=== PATIENT | female | born 1970 | race Caucasian/White ===

== ENCOUNTER 2016-10-22 18:30 | Emergency (ER) | payer OTHER ==
[2016-10-22 19:06] LABS: BASOPHIL % 0.2 % (0.0-0.4); Eosinophil % 0.5 % (0.00-5.0); Lymphocytes % 10.4 % (24.0-44.0); Mean Cell Volume 86.6 fl (78-100); Mean Platelet Volume 11.5 fl (6-9.5); Monocytes % 4.9 % (0.0-12.0); Platelet Count 171 K/mm3 (150-450); Red Blood Count 4.03 M/mm3 (4.1-5.4); Red Cell Distribution Width 15.3 % (11.5-14.0); White Blood Count 9.9 K/mm3 (4.0-10.5)
[2016-10-22 19:09] LABS: Mean Corpuscular Hemoglobin 26.7 pg (26-32)
[2016-10-22 19:22] LABS: Collection Type CLEAN CATCH
[2016-10-22 19:23] LABS: ADD URINE CULTURE? NO (NO); COMPLETE URINE MICROSCOPIC? YES; Epithelial Cells FEW /HPF (FEW); Ph 5.5 (5-6)
[2016-10-22 19:25] LABS: ALBUMIN 3.2 g/dL (3.4-5.0); ANION GAP 15.5 MEQ/L (5-15); BILIRUBIN,TOTAL 0.3 mg/dL (0.2-1.0); Carbon Dioxide 21.1 mEq/L (21-32); Potassium 3.5 mEq/L (3.5-5.1); Total Protein 7.1 gm/dL (6.4-8.2)
[2016-10-22] MEDS ORDERED: Sodium Chloride 0.9% 1000 ML 1,000 ML IV STA (19:28)
[2016-10-22] MEDS ORDERED: Sodium Chloride 0.9% 1000 ML 1,000 ML ONE (19:33)
[2016-10-22 19:45] VITALS: BP 131/73
--- NOTE | 2016-10-22 20:18 | ERPHSYRPT ---
- History of Present Illness Time Seen by Provider: 10/22/16 19:22 Source: patient, family Patient Subjective Stated Complaint: pt states she began running a fever and having bilateral year pain and sorethroat. pt denies any cough. c/o generalized bodyaches. Triage Nursing Assessment: pt flushed, hot to touch, dry. pt alert and oriented x3. ambulated with riojas into ER. Physician History: CC: fever Hx: 46 y/o patient sick today. Fever today. Chills. She has burning eyes, sore throat, mild cough, increased urinary frequency. She has DM. No vomiting or diarrhea. Has not checked glc. Took APAP at 5PM. She is a patient of Dr Saunders. ALL: Zpack, shellfish, codiene, roaches Social: Smoker Timing/Duration: today Fever Severity: moderate Fever Therapy MANAGER MASS: Acetaminophen Allergies/Adverse Reactions: azithromycin [From Zithromax Z-Pedro] Allergy (Verified 10/22/16 18:45) codeine Allergy (Verified 10/22/16 18:45) shellfish derived Allergy (Verified 10/22/16 18:45) Home Medications: Albuterol 8 gm Mdi Hfa [Ventolin Hfa MDI] 2 puff IH .PRN 01/21/16 [History ] Loratadine 10 mg [Claritin 10 mg] 10 mg PO DAILY 01/21/16 [History] PANTOPRAZOLE 40 mg Tablet [Protonix 40MG Tablet] 40 mg PO DAILY 01/21/16 [ History] Pregabalin [Lyrica] 75 mg PO TID 01/21/16 [History] Rizatriptan Benzoate [Rizatriptan] 10 mg PO .PRN 01/21/16 [History] Tizanidine HCl 4 mg [Zanaflex 4 MG] 2 mg PO HS 01/21/16 [History] Topiramate [Topamax] 50 mg PO BID 01/21/16 [History] Pioglitazone HCl [Actos] 0 mg PO UD 10/22/16 [History] Hx Tetanus, Diphtheria Vaccination/Date Given: Yes (unknown) Hx Influenza Vaccination/Date Given: No Hx Pneumococcal Vaccination/Date Given: No Immunizations Up to Date: Yes - Review of Systems Constitutional: Fever, Chills, Malaise Eyes: Other (burning eyes) Ears, Nose, & Throat: Throat Pain Respiratory: Cough Abdominal/Gastrointestinal: No Abdominal Pain, No Nausea, No Vomiting, No Diarrhea Genitourinary Symptoms: Frequency, No Dysuria Musculoskeletal: No Back Pain Skin: No Rash Neurological: No Focal Weakness, No Headache, No Parasthesia All Other Systems: Reviewed and Negative - Past Medical History Pertinent Past Medical History: Yes Neurological History: Migraines Musculoskeletal History: Fibromyalgia, Osteoarthritis Other Medical History: neuropatthy. chronic pain - Past Surgical History Past Surgical History: Yes Gastrointestinal: Cholecystectomy Musculoskeletal: Orthopedic Surgery Female Surgical History: Section Other Surgical History: back - Social History Smoking Status: Current every day smoker How long have you smoked: 35 Exposure to second hand smoke: Yes Drug Use: none Patient Lives Alone: No - Female History Hx Last Menstrual Period: end september 2016 - Nursing Vital Signs Nursing Vital Signs: Initial Vital Signs Temperature 102.5 F Temperature Source Oral Pulse Rate 90 Respiratory Rate 14 Blood Pressure [] 131/73 Pain Intensity 8 - Physical Exam General Appearance: alert Eye Exam: PERRL/EOMI ENT Exam: pharyngeal erythema, tonsillar exudate Neck Exam: normal inspection, non-tender, supple Respiratory Exam: normal breath sounds, lungs clear Cardiovascular/Chest Exam: normal heart sounds, regular rate/rhythm Gastrointestinal/Abdominal Exam: soft, no distention Extremity Exam: non-tender, normal range of motion Neurologic Exam: alert, oriented x 3, cooperative, sensation nml, No motor deficits Skin Exam: warm, dry, No rash SpO2 Interpretation: normal SpO2: 99 Oxygen Delivery: Room Air - Course Nursing assessment & vital signs reviewed: Yes EKG Interpreted by Me: RATE (91), Sinus Rhythm, NORMAL AXIS, NORMAL INTERVALS ( QTc 426), Non-specific ST Changes (poor r wave progression) - Radiology Exams cxr X-ray Interpretation: Reviewed by me (CM, no pneumonia but some increased right basilar markings) Ordered Tests: Active Orders 24 hr Category Date Time Status EKG-ER Only STAT Care 10/22/16 18:45 Active IV Insertion STAT Care 10/22/16 18:52 Active CHEST 1 VIEW (PORTABLE) Stat Exams 10/22/16 18:54 Taken BLOOD CULTURE Stat Lab 10/22/16 18:55 Received CBC W DIFF Stat Lab 10/22/16 18:55 Completed CMP Stat Lab 10/22/16 18:55 Completed CULTURE, THROAT Stat Lab 10/22/16 19:00 Received Lactic Acid Stat Lab 10/22/16 18:52 Completed STREP SCREEN-BETA A Stat Lab 10/22/16 19:00 Completed UA W/ MICROSCOPIC Stat Lab 10/22/16 18:50 Completed Medication Summary Discontinued Medications Generic Name Dose Route Start Last Admin Trade Name Jeffery PRN Reason Stop Dose Admin Sodium Chloride 1,000 mls @ 999 mls/hr 10/22/16 19:28 10/22/16 19:38 Sodium Chloride 0.9% 1000 Ml IV 10/22/16 20:28 999 mls/hr .Q1H1M STA Administration Sodium Chloride Confirm 10/22/16 19:33 Sodium Chloride 0.9% 1000 Ml Administered 10/22/16 19:34 Dose 1,000 mls @ ud .ROUTE .STK-MED ONE Lab/Rad Data: Laboratory Result Diagrams 10/22/16 18:55 10/22/16 18:55 Laboratory Results 10/22/16 10/22/16 10/22/16 Range/Units 19:30 19:00 18:55 WBC (4.0-10.5) K/mm3 RBC (4.1-5.4) M/mm3 Hgb (12.0-16.0) gm/dl Hct (35-47) % MCV (78-100) fl MCH (26-32) pg MCHC (32-36) g/dl RDW (11.5-14.0) % Plt Count (150-450) K/mm3 MPV (6-9.5) fl Gran % (36.0-66.0) % Lymphocytes % (24.0-44.0) % Monocytes % (0.0-12.0) % Eosinophils % (0.00-5.0) % Basophils % (0.0-0.4) % Basophils # (0-0.4) Sodium 139 (136-145) mEq/L Potassium 3.5 (3.5-5.1) mEq/L Chloride 106 (98-107) mEq/L Carbon Dioxide 21.1 (21-32) mEq/L Anion Gap 15.5 H (5-15) MEQ/L BUN 8 L (9-20) mg/dL Creatinine 1.12 (0.55-1.30) mg/dl Estimated GFR 55 ML/MIN Glucose 117 H (70-110) MG/DL Lactic Acid (0.4-2.0) Calcium 8.7 (8.5-10.1) mg/dL Total Bilirubin 0.3 (0.2-1.0) mg/dL AST 29 (15-37) U/L ALT 44 (12-78) U/L Alkaline Phosphatase 74 (46-116) U/L Serum Total Protein 7.1 (6.4-8.2) gm/dL Albumin 3.2 L (3.4-5.0) g/dL Ur Collection Type Urine Color (YELLOW) Urine Appearance (CLEAR) Urine pH (5-6) Ur Specific [place] (1.005-1.025) Urine Protein (Negative) Urine Glucose (UA) (NEGATIVE) mg/dL Urine Ketones (NEGATIVE) Urine Nitrite (NEGATIVE) Urine Bilirubin (NEGATIVE) Urine Urobilinogen (0-1) mg/dL Urine WBC (Auto) (NEGATIVE) Urine RBC (Auto) (0-5) Jad/ul Urine Microscopic RBC (0-2) /HPF Ur Epithelial Cells (FEW) /HPF Influenza Type A Ag NEGATIVE (NEGATIVE) Influenza Type B Ag NEGATIVE (NEGATIVE) RSV (PCR) NEGATIVE (Negative) Streptococcus Screen NEGATIVE (Negative) Specimen Received 10/22/16 10/22/16 10/22/16 Range/Units 18:55 18:52 18:50 WBC 9.9 (4.0-10.5) K/mm3 RBC 4.03 L (4.1-5.4) M/mm3 Hgb 10.8 L (12.0-16.0) gm/dl Hct 34.9 L (35-47) % MCV 86.6 (78-100) fl MCH 26.7 (26-32) pg MCHC 30.9 L (32-36) g/dl RDW 15.3 H (11.5-14.0) % Plt Count 171 (150-450) K/mm3 MPV 11.5 H (6-9.5) fl Gran % 84.0 H (36.0-66.0) % Lymphocytes % 10.4 L (24.0-44.0) % Monocytes % 4.9 (0.0-12.0) % Eosinophils % 0.5 (0.00-5.0) % Basophils % 0.2 (0.0-0.4) % Basophils # 0.02 (0-0.4) Sodium (136-145) mEq/L Potassium (3.5-5.1) mEq/L Chloride (98-107) mEq/L Carbon Dioxide (21-32) mEq/L Anion Gap (5-15) MEQ/L BUN (9-20) mg/dL Creatinine (0.55-1.30) mg/dl Estimated GFR ML/MIN Glucose (70-110) MG/DL Lactic Acid 1.4 (0.4-2.0) Calcium (8.5-10.1) mg/dL Total Bilirubin (0.2-1.0) mg/dL AST (15-37) U/L ALT (12-78) U/L Alkaline Phosphatase (46-116) U/L Serum Total Protein (6.4-8.2) gm/dL Albumin (3.4-5.0) g/dL Ur Collection Type CLEAN CATCH Urine Color YELLOW (YELLOW) Urine Appearance CLEAR (CLEAR) Urine pH 5.5 (5-6) Ur Specific [place] <=1.005 (1.005-1.025) Urine Protein NEGATIVE (Negative) Urine Glucose (UA) NEGATIVE (NEGATIVE) mg/dL Urine Ketones NEGATIVE (NEGATIVE) Urine Nitrite NEGATIVE (NEGATIVE) Urine Bilirubin NEGATIVE (NEGATIVE) Urine Urobilinogen 0.2 (0-1) mg/dL Urine WBC (Auto) NEGATIVE (NEGATIVE) Urine RBC (Auto) MODERATE (0-5) Jad/ul Urine Microscopic RBC 2-5 (0-2) /HPF Ur Epithelial Cells FEW (FEW) /HPF Influenza Type A Ag (NEGATIVE) Influenza Type B Ag (NEGATIVE) RSV (PCR) (Negative) Streptococcus Screen (Negative) Specimen Received 10/21/16:1900 - Progress Progress Note: 10/22/16 20:56 She feels malaise and chills. She has fever. Likely viral syndrome. Advised she had heart and blood count checked for follow up. Advised symptom Rx. She wants to take empiric amoxil as she has exudate on tonsils. Throat culture pending. Can not rule out rll inf. Will release with instr. Counseled pt/family regarding: lab results, diagnosis, need for follow-up, rad results - Departure Time of Disposition: 20:57 Departure Disposition: Home Clinical Impression: Fever, Influenza-like syndrome Condition: Fair Critical Care Time: No Referrals: NICOLE SAUNDERS DO [Primary Care Provider] - Instructions: Fever (Symptom) -- Adult, Viral Syndrome, Pharyngitis/ Tonsillopharyngitis -- Adult Additional Instructions: Rx amoxil. Tylenol 650mg every 4-6 hours for fever/discomfort. Plenty of oral fluids. Follow up with Dr Saunders Wednesday if not better. Return for problems or concerns. Prescriptions: Amoxicillin [Amoxil] 1 cap PO TID #29 capsule
[2016-10-22] MEDS ORDERED: TYLENOL 325 MG PO ONE (20:56)
[2016-10-22] MEDS ORDERED: AMOXIL 500 MG PO ONE (20:56)
[2016-10-22 20:59] VITALS: O2SAT 99
[2016-10-22] MEDS ORDERED: TYLENOL 325 MG ONE (21:00)
[2016-10-22] MEDS ORDERED: AMOXIL 500 MG ONE (21:01)
[2016-10-22 21:10] VITALS: PULSE 80
--- NOTE | 2016-10-23 08:45 | XRAY ---
Indication: Fever and cough. Comparison: None Portable chest negative for focal infiltrate, consolidation, or large effusion. Heart and mediastinal structures within normal limits for AP portable technique. Bony thorax intact with previous lower cervical fusion surgery and incidental C7 cervical ribs. Impression: Nonacute chest with chronic features.
== END 2016-10-22 21:42 | disposition home or self-care (01) ==
LOC: ED 18:30
DX: R50.9 Fever, unspecified (principal); R53.81 Other malaise; R07.0 Pain in throat; R05 Cough
CPT/HCPCS: 36000; 36415; 71010; 80053; 81000; 83605; 85025; 87040; 87070; 87430; 87631; 93005; 96360; 99284; A9270-GY

== ENCOUNTER 2017-09-06 16:28 | Emergency (ER) | payer OTHER ==
[2017-09-06] MEDS ORDERED: TORAdol 30 mg Injection IM ONE (17:42)
--- NOTE | 2017-09-06 17:52 | ERPHSYRPT ---
- History of Present Illness Time Seen by Provider: 09/06/17 17:36 Source: patient Patient Subjective Stated Complaint: pt co migraine for 36 hours now, has tried her rx drugs with no relief Triage Nursing Assessment: pt aslo co right face swelling today.alert, walked in , resp easy Physician History: CC: headache Hx: 47 y/o patient of Dr Adrian Joe with hx of migraine headaches. She has had for the past 1 1/2 days. She took topamax and maxalt without relief. She has frequent similar headaches. No fever or chills. No neck pain. She had some right face swelling over parotid while eating lunch but it went down with a heating pad. No N/T/W. Severity of Pain-Max: severe Severity of Pain-Current: severe Recent Head Trauma: no recent headache/trauma Allergies/Adverse Reactions: azithromycin [From Zithromax Z-Pedro] Allergy (Verified 09/06/17 16:45) codeine Allergy (Verified 09/06/17 16:45) shellfish derived Allergy (Verified 09/06/17 16:45) Home Medications: Albuterol 8 gm Mdi Hfa [Ventolin Hfa MDI] 2 puff IH .PRN 01/21/16 [History ] Loratadine 10 mg [Claritin 10 mg] 10 mg PO DAILY 01/21/16 [History] PANTOPRAZOLE 40 mg Tablet [Protonix 40MG Tablet] 40 mg PO DAILY 01/21/16 [ History] Pregabalin [Lyrica] 75 mg PO TID 01/21/16 [History] Rizatriptan Benzoate [Rizatriptan] 10 mg PO .PRN 01/21/16 [History] Tizanidine HCl 4 mg [Zanaflex 4 MG] 2 mg PO HS 01/21/16 [History] Topiramate [Topamax] 50 mg PO BID 01/21/16 [History] Pioglitazone HCl [Actos] 0 mg PO UD 10/22/16 [History] Hx Tetanus, Diphtheria Vaccination/Date Given: Yes (unknown) Hx Influenza Vaccination/Date Given: No Hx Pneumococcal Vaccination/Date Given: No Immunizations Up to Date: Yes - Review of Systems Constitutional: No Fever, No Chills Eyes: Photophobia Ears, Nose, & Throat: No Symptoms Respiratory: No Cough Cardiac: No Chest Pain Abdominal/Gastrointestinal: No Abdominal Pain, No Nausea, No Vomiting Skin: No Rash Neurological: Headache All Other Systems: Reviewed and Negative - Past Medical History Pertinent Past Medical History: Yes Neurological History: Migraines Musculoskeletal History: Fibromyalgia, Osteoarthritis Other Medical History: neuropatthy. chronic pain - Past Surgical History Past Surgical History: Yes Gastrointestinal: Cholecystectomy Musculoskeletal: Orthopedic Surgery Female Surgical History: Section Other Surgical History: neck,arm surg - Social History Smoking Status: Current every day smoker How long have you smoked: 35 Exposure to second hand smoke: Yes Drug Use: none Patient Lives Alone: No (drove self here) - Female History Hx Last Menstrual Period: yesterday Hx Now: No - Nursing Vital Signs Nursing Vital Signs: Initial Vital Signs Temperature 98.5 F 09/06/17 16:39 Pulse Rate 78 09/06/17 16:39 Respiratory Rate 16 09/06/17 16:39 Blood Pressure 172/72 09/06/17 16:39 O2 Sat by Pulse Oximetry 100 09/06/17 16:39 Pain Scale Pain Intensity 7 - Physical Exam General Appearance: alert Eye Exam: PERRL/EOMI Ears, Nose, Throat Exam: normal ENT inspection, moist mucous membranes Neck Exam: normal inspection, non-tender, supple Respiratory Exam: normal breath sounds, lungs clear Cardiovascular Exam: regular rate/rhythm Gastrointestinal/Abdominal Exam: soft, No tenderness, No distention Mental Status Exam: alert, oriented x 3, cooperative drapery head former Exam: normal hearing, normal speech, PERRL Motor/Sensory Exam: no motor deficit, no sensory deficit, no pronator drift Skin Exam: warm, dry, No rash SpO2 Interpretation: normal SpO2: 100 Oxygen Delivery: Room Air - Course Nursing assessment & vital signs reviewed: Yes Ordered Tests: Medication Summary Discontinued Medications Generic Name Dose Route Start Last Admin Trade Name Freq PRN Reason Stop Dose Admin Ketorolac Tromethamine 60 mg 09/06/17 17:42 Toradol 30 Mg Injection IM 09/06/17 17:43 STAT ONE - Progress Progress Note: 09/06/17 17:52 Pt has hx of headaches in the past. She would like to have a toradol shot. She is driving. No focal neuro findings. Counseled pt/family regarding: diagnosis, need for follow-up - Departure Time of Disposition: 17:53 Departure Disposition: Home Clinical Impression: Migraine headache Qualifiers: Migraine type: without aura Status migrainosus presence: with status migrainosus Intractability: intractable Qualified Code(s): G43.011 - Migraine without aura, intractable, with status migrainosus Condition: Stable Critical Care Time: No Referrals: ADRIAN JOE MD [Primary Care Provider] - Instructions: Headache, Adult (DC) Additional Instructions: HEADACHE 1. After discharge from the emergency department, you should rest at home in a cool, dark, quiet place for 12-24 hours. 2. If any of the following signs or symptoms are noticed, you should be re- evaluated right away: A. Visual changes B. Stiff Neck C. Change in quality or location of pain D. Fever E. Recurrent vomiting 3. If pain medications were prescribed or given, they may cause drowsiness. Follow up with Dr Joe.
[2017-09-06] MEDS ORDERED: TORAdol 30 mg Injection ONE (17:54)
[2017-09-06 18:02] VITALS: BP 164/70; PULSE 72; O2SAT 98
== END 2017-09-06 18:14 | disposition home or self-care (01) ==
LOC: ED 16:28
DX: G43.011 Migraine without aura, intractable, with status migrainosus (principal); Z79.899 Other long term (current) drug therapy
CPT/HCPCS: 96372; 99284; J1885

== ENCOUNTER 2018-02-18 23:54 | Emergency (ER) | payer OTHER ==
[2018-02-19] MEDS ORDERED: Sodium Chloride 0.9% 1000 ML 1,000 ML IV STA (00:31)
[2018-02-19] MEDS ORDERED: LOPRESSOR 5 MG/5 ML INJECTION IV ONE ×4 (00:33→00:57)
[2018-02-19] MEDS ORDERED: Sodium Chloride 0.9% 1000 ML 1,000 ML ONE (00:35)
[2018-02-19 00:43] LABS: INR 0.98 (0.8-3.0)
[2018-02-19 00:57] LABS: ALBUMIN 4.2 g/dL (3.5-5.0); ALKALINE PHOSPHATASE 102 U/L (38-126); ANION GAP 13.5 MEQ/L (5-15); BLOOD UREA NITROGEN 10 mg/dL (7-17); CHLORIDE 107 mmol/L (98-107); Calcium 9.4 mg/dL (8.4-10.2); Carbon Dioxide 24 mmol/L (22-30); Creatinine 1 0.72 mg/dL (0.52-1.04); Glucose 163 mg/dL (74-106); NT PRO BNP 103 pg/mL (0-450); Potassium 4.1 mmol/L (3.5-5.1); SGOT/AST 48 U/L (14-36); SGPT/ALT 50 U/L (0-35); SODIUM 140 mmol/L (137-145); Total Protein 7.6 g/dL (6.3-8.2)
[2018-02-19] MEDS ORDERED: BENADRYL 50 MG/ML IV ONE (01:04)
[2018-02-19] MEDS ORDERED: solu-MEDROL 125 MG IV ONE (01:05)
[2018-02-19] MEDS ORDERED: BENADRYL 50 MG/ML ONE (01:08)
[2018-02-19] MEDS ORDERED: solu-MEDROL 125 MG ONE (01:08)
[2018-02-19 01:09] VITALS: O2SAT 98
--- NOTE | 2018-02-19 01:27 | ERPHSYRPT ---
- History of Present Illness Time Seen by Provider: 02/19/18 00:05 Patient Subjective Stated Complaint: palpatations Triage Nursing Assessment: Pt c/o of heart palpatations and tachycardia, last had 12 years ago during , lightheaded, nausea, no edema, lungs clear, bowel sounds heard in all 4 quadrants, pulses normal, Physician History: 48 y/o obese white female presents with palpitations that suddenly came on approx 2000 this pm. pt has no documented heart condition. however, pt states she had a similar episode 12 years ago when she was . she also states she had brief episodes in december and january that spontaneously resolved. pt denies cp, has mild soa, mild dizziness and mild nausea. pt states she is not on any medications now. she took herself off all of them 2 weeks ago. Timing/Duration: today, hour(s) (4) Activities at Onset: none Quality: other (rapid heart rate) Chest Pain Radiation: no radiation Severity of Pain-Max: none Severity of Pain-Current: none Nitro Today/Relief: no nitro taken today Aspirin Treatment Today: no aspirin today Associated Symptoms: nausea, shortness of breath (mild), No vomiting, No abdominal pain, No heartburn, No diaphoresis, No cough, No chest pain, No syncope, No seizure, No weakness Prior Chest Pain/Cardiac Workup: no prior chest pain, no prior cardiac workup Allergies/Adverse Reactions: azithromycin [From Zithromax Z-Pedro] Allergy (Verified 02/19/18 00:13) codeine Allergy (Verified 02/19/18 00:13) shellfish derived Allergy (Verified 02/19/18 00:13) Hx Tetanus, Diphtheria Vaccination/Date Given: Yes (unknown) Hx Influenza Vaccination/Date Given: No Hx Pneumococcal Vaccination/Date Given: No - Review of Systems Constitutional: No Symptoms, No Fever, No Chills Eyes: No Symptoms, No Discharge, No Eye Pain Ears, Nose, & Throat: No Symptoms, No Ear Pain Respiratory: Dyspnea (mild), No Cough, No Stridor, No Wheezing Cardiac: No Symptoms, Palpitations, No Chest Pain, No Syncope Abdominal/Gastrointestinal: Nausea, No Vomiting, No Diarrhea, No Constipation Genitourinary Symptoms: No Symptoms, No Dysuria, No Frequency, No Hematuria Musculoskeletal: No Symptoms Skin: No Symptoms Neurological: No Symptoms Psychological: No Symptoms Endocrine: No Symptoms Hematologic/Lymphatic: No Symptoms Immunological/Allergic: No Symptoms All Other Systems: Reviewed and Negative - Past Medical History Pertinent Past Medical History: Yes Neurological History: Migraines Cardiac History: Other Respiratory History: Asthma Musculoskeletal History: Fibromyalgia, Fractures, Osteoarthritis Other Medical History: neuropathy. chronic pain - Past Surgical History Past Surgical History: Yes Gastrointestinal: Cholecystectomy Musculoskeletal: Orthopedic Surgery Female Surgical History: Section Other Surgical History: neck,arm surg , right pinky, 1 miscarraige - Social History Smoking Status: Current every day smoker How long have you smoked: 35 years Exposure to second hand smoke: Yes Drug Use: none Patient Lives Alone: No - Female History Hx Last Menstrual Period: 1.5 months Hx Now: No (tubal) - Nursing Vital Signs Nursing Vital Signs: Initial Vital Signs Temperature 97.9 F 02/18/18 23:59 Pulse Rate 129 H 02/18/18 23:59 Respiratory Rate 22 02/18/18 23:59 Blood Pressure 140/86 02/18/18 23:59 O2 Sat by Pulse Oximetry 100 02/18/18 23:59 Pain Scale Pain Intensity 3 - Physical Exam General Appearance: mild distress, alert, anxiety Eye Exam: PERRL/EOMI, eyes nml inspection Ears, Nose, Throat Exam: normal ENT inspection Neck Exam: normal inspection, non-tender, supple, full range of motion Respiratory Exam: normal breath sounds, lungs clear, airway intact, No chest tenderness, No respiratory distress, No diminished breath sounds, No accessory muscle use, No rhonchi, No wheezing, No stridor Cardiovascular Exam: tachycardia Gastrointestinal/Abdomen Exam: soft, normal bowel sounds, No tenderness, No guarding, No rebound Pelvic Exam: not done Rectal Exam: not done Back Exam: normal inspection, normal range of motion, No CVA tenderness, No vertebral tenderness Extremity Exam: normal inspection, normal range of motion, pelvis stable Neurologic Exam: alert, oriented x 3, cooperative, 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 otherwise no changes) Ordered Tests: Active Orders 24 hr Category Date Time Status Cyber Threat Analyst STAT Care 02/19/18 00:32 Active EKG-ER Only STAT Care 02/19/18 00:31 Active IV Insertion STAT Care 02/19/18 00:31 Active CHEST WITH CONTRAST [CT] Stat Exams 02/19/18 01:04 Taken CMP Stat Lab 02/19/18 00:40 Completed D-DIMER QUANTITATION Stat Lab 02/19/18 00:40 Completed NT PRO BNP Stat Lab 02/19/18 00:40 Completed PROTIME WITH INR Stat Lab 02/19/18 00:40 Completed TROPONIN Q3H Lab 02/19/18 00:40 Completed TROPONIN Q3H Lab 02/19/18 03:45 Ordered TROPONIN Q3H Lab 02/19/18 06:45 Ordered TROPONIN Q3H Lab 02/19/18 09:45 Ordered TROPONIN Q3H Lab 02/19/18 12:45 Ordered UA W/RFX UR CULTURE Stat Lab 02/19/18 02:00 Completed Medication Summary Discontinued Medications Generic Name Dose Route Start Last Admin Trade Name Freq PRN Reason Stop Dose Admin Diphenhydramine HCl 50 mg 02/19/18 01:04 02/19/18 01:09 Benadryl 50 Mg/Ml IV 02/19/18 01:05 50 mg STAT ONE Administration Diphenhydramine HCl Confirm 02/19/18 01:08 Benadryl 50 Mg/Ml Administered 02/19/18 01:09 Dose 50 mg .ROUTE .STK-MED ONE Sodium Chloride 1,000 mls @ 999 mls/hr 02/19/18 00:31 02/19/18 02:05 Sodium Chloride 0.9% 1000 Ml IV 02/19/18 01:31 Infused .Q1H1M STA Infusion Sodium Chloride Confirm 02/19/18 00:35 Sodium Chloride 0.9% 1000 Ml Administered 02/19/18 00:36 Dose 1,000 mls @ ud .ROUTE .STK-MED ONE Methylprednisolone Sodium Succinate 125 mg 02/19/18 01:05 02/19/18 01:09 Solu-Medrol 125 Mg IV 02/19/18 01:06 125 mg STAT ONE Administration Methylprednisolone Sodium Succinate Confirm 02/19/18 01:08 Solu-Medrol 125 Mg Administered 02/19/18 01:09 Dose 125 mg .ROUTE .STK-MED ONE Metoprolol Tartrate 5 mg 02/19/18 00:33 02/19/18 00:43 Lopressor 5 Mg/5 Ml Injection IV 02/19/18 00:34 5 mg STAT ONE Administration Metoprolol Tartrate Confirm 02/19/18 00:35 Lopressor 5 Mg/5 Ml Injection Administered 02/19/18 00:36 Dose 5 mg IV .STK-MED ONE Metoprolol Tartrate Confirm 02/19/18 00:52 Lopressor 5 Mg/5 Ml Injection Administered 02/19/18 00:53 Dose 5 mg IV .STK-MED ONE Metoprolol Tartrate 5 mg 02/19/18 00:57 02/19/18 01:06 Lopressor 5 Mg/5 Ml Injection IV 02/19/18 00:58 5 mg STAT ONE Administration Lab/Rad Data: Laboratory Result Diagrams 02/19/18 00:40 Laboratory Results 02/19/18 02/19/18 02/19/18 Range/Units 02:00 00:40 00:40 PT 11.4 (9.95-12.35) SECONDS INR 0.98 (0.8-3.0) D-Dimer 692 H* (215-500) ng/mL Sodium (137-145) mmol/L Potassium (3.5-5.1) mmol/L Chloride (98-107) mmol/L Carbon Dioxide (22-30) mmol/L Anion Gap (5-15) MEQ/L BUN (7-17) mg/dL Creatinine (0.52-1.04) mg/dL Estimated GFR ML/MIN Glucose (74-106) mg/dL Calcium (8.4-10.2) mg/dL Total Bilirubin (0.2-1.3) mg/dL AST (14-36) U/L ALT (0-35) U/L Alkaline Phosphatase (38-126) U/L Troponin I < 0.012 (0.000-0.034) ng/mL NT-Pro-B Natriuret Pep (0-450) pg/mL Serum Total Protein (6.3-8.2) g/dL Albumin (3.5-5.0) g/dL Ur Collection Type VOID Urine Color YELLOW (YELLOW) Urine Appearance CLEAR (CLEAR) Urine pH 5.5 (5-6) Ur Specific [place] 1.015 (1.005-1.025) Urine Protein NEGATIVE (Negative) Urine Ketones NEGATIVE (NEGATIVE) Urine Blood NEGATIVE (0-5) Jad/ul Urine Nitrite NEGATIVE (NEGATIVE) Urine Bilirubin NEGATIVE (NEGATIVE) Urine Urobilinogen NORMAL (0-1) mg/dL Ur Leukocyte Esterase NEGATIVE (NEGATIVE) Urine Culture Reflexed NO (NO) Urine Glucose NEGATIVE (NEGATIVE) mg/dL Specimen Received 02/19 20002/19/18 Range/Units 00:40 PT (9.95-12.35) SECONDS INR (0.8-3.0) D-Dimer (215-500) ng/mL Sodium 140 (137-145) mmol/L Potassium 4.1 (3.5-5.1) mmol/L Chloride 107 (98-107) mmol/L Carbon Dioxide 24 (22-30) mmol/L Anion Gap 13.5 (5-15) MEQ/L BUN 10 (7-17) mg/dL Creatinine 0.72 (0.52-1.04) mg/dL Estimated GFR > 60.0 ML/MIN Glucose 163 H (74-106) mg/dL Calcium 9.4 (8.4-10.2) mg/dL Total Bilirubin 0.20 (0.2-1.3) mg/dL AST 48 H (14-36) U/L ALT 50 H (0-35) U/L Alkaline Phosphatase 102 (38-126) U/L Troponin I (0.000-0.034) ng/mL NT-Pro-B Natriuret Pep 103 (0-450) pg/mL Serum Total Protein 7.6 (6.3-8.2) g/dL Albumin 4.2 (3.5-5.0) g/dL Ur Collection Type Urine Color (YELLOW) Urine Appearance (CLEAR) Urine pH (5-6) Ur Specific [place] (1.005-1.025) Urine Protein (Negative) Urine Ketones (NEGATIVE) Urine Blood (0-5) Jad/ul Urine Nitrite (NEGATIVE) Urine Bilirubin (NEGATIVE) Urine Urobilinogen (0-1) mg/dL Ur Leukocyte Esterase (NEGATIVE) Urine Culture Reflexed (NO) Urine Glucose (NEGATIVE) mg/dL Specimen Received cta chest-no pulmonary emboli - Progress Progress: improved, re-examined Air Movement: good Progress Note: 02/19/18 03:19 repeat ekg after total 10mg iv lopressor at 0311 hr 80; nsr; nl axis; nl qt interval; nl st segment no acute ischemia Blood Culture(s) Obtained: No Antibiotics given: No Counseled pt/family regarding: lab results, diagnosis, need for follow-up - Departure Time of Disposition: 03:34 Departure Disposition: Home Clinical Impression: SVT (supraventricular tachycardia) Condition: Stable Critical Care Time: Yes Critical Care Time(excluding separately billable procedures): 30-74 minutes Referrals: ADRIAN JOE MD [Primary Care Provider] - Additional Instructions: take medications as prescribed. return to ER if symptoms recur. follow up with [facility] wednesday02/19/18. rest over weekend. Prescriptions: Metoprolol Tartrate 25 mg [Lopressor 25MG Tab] 25 mg PO BID #20 tab
[2018-02-19 02:35] LABS: Appearance CLEAR (CLEAR); Bilirubin NEGATIVE (NEGATIVE); Blood NEGATIVE Ery/ul (0-5); Glucose NEGATIVE (NEGATIVE); Ketones NEGATIVE (NEGATIVE); Leukocyte Esterase NEGATIVE (NEGATIVE); Nitrite NEGATIVE (NEGATIVE); Ph 5.5 (5-6); Protein,Urine Dip NEGATIVE (Negative); Specific Gravity 1.015 (1.005-1.025); Urobilinogen NORMAL mg/dL (0-1)
[2018-02-19 03:50] VITALS: BP 115/65; PULSE 84
--- NOTE | 2018-02-19 09:11 | XRAY ---
Indication: Tachycardia, palpitations, short of breath, and elevated d-dimer. Multiple contiguous axial images obtained through the chest using 80 cc Isovue 370 contrast and PE protocol. Comparison: None There is satisfactory opacification of the pulmonary arteries. However mild respiration artifact limits evaluation of the more distal lobar and segmental branches. No central filling defect or pulmonary embolus. Heart is not enlarged. Aorta is normal in course and caliber. No pathologic mediastinal/hilar lymphadenopathy. Examination of the lung parenchyma demonstrates minimal bilateral dependent atelectasis. No suspicious pulmonary mass, infiltrate, or effusion. Bony thorax intact with minimal spinal degenerative changes. Limited upper abdomen demonstrates diffuse fatty liver and 16 cm splenomegaly. Impression: 1. Respiration artifact. Negative pulmonary embolus. 2. No acute cardiopulmonary abnormalities. 3. Incidental fatty liver and splenomegaly. Comment: Preliminary interpretation was made by [facility]. No discrepancy. CTDI 23.68
== END 2018-02-19 03:50 | disposition home or self-care (01) ==
LOC: ED 23:54
DX: I47.1 Supraventricular tachycardia (principal); R06.02 Shortness of breath; R42 Dizziness and giddiness; R11.0 Nausea
CPT/HCPCS: 36000; 36415; 71260; 80053; 81002; 83880; 84484; 85379; 85610; 93005; 93041; 96360; 96374; 96375; 96376; 99285; J1200; J2930

== ENCOUNTER 2018-03-20 09:45 | Emergency (ER) | payer OTHER ==
[2018-03-20] MEDS ORDERED: Sodium Chloride 0.9% 1000 ML 1,000 ML IV STA (10:08)
[2018-03-20] MEDS ORDERED: Sodium Chloride 0.9% 1000 ML 1,000 ML ONE (10:14)
[2018-03-20 10:15] LABS: BASOPHIL % 0.3 % (0.0-0.4); Basophil (Absolute #) 0.02 (0-0.4); Eosinophil % 1.8 % (0.00-5.0); Eosinophil (Absolute #) 0.13 (0-0.5); Hematocrit 35.9 % (35-47); Hemoglobin 10.7 gm/dl (12.0-16.0); Lymphocyte (Absolute #) 1.07 (1.0-4.6); Mean Cell Volume 73.9 fl (78-100); Mean Corpuscular Hgb Concent. 29.8 g/dl (32-36); Mean Platelet Volume 10.3 fl (6-9.5); Monocyte (Absolute #) 0.49 (0.0-1.3); Monocytes % 6.9 % (0.0-12.0); Platelet Count 220 K/mm3 (150-450); Red Blood Count 4.86 M/mm3 (4.1-5.4); White Blood Count 7.1 K/mm3 (4.0-10.5)
--- NOTE | 2018-03-20 10:20 | ERPHSYRPT ---
- History of Present Illness Time Seen by Provider: 03/20/18 10:18 Source: patient Exam Limitations: no limitations Patient Subjective Stated Complaint: pt reports having palpitations with some discomfort in her chest starting today at 0600. pt reports she was here recently and treated for tachycardia and given a script for metoprolol. Triage Nursing Assessment: pt is aox3, pupils perrl, afebrile, resps easy and non labored, radial pulses strong and equal bilat, heart sounds strong and regular, chest discomfort localized to the center of the chest that is non radiating, no edema appreciated. Physician History: pt reports having palpitations with some discomfort in her chest starting today at 0600 Timing/Duration: today Activities at Onset: none Severity of Pain-Max: none Severity of Pain-Current: none Modifying Factors: Improves With: other (metoprolol) Nitro Today/Relief: no nitro taken today Aspirin Treatment Today: no aspirin today Allergies/Adverse Reactions: azithromycin [From Zithromax Z-Pedro] Allergy (Verified 03/20/18 10:12) codeine Allergy (Verified 03/20/18 10:12) shellfish derived Allergy (Verified 03/20/18 10:12) Hx Tetanus, Diphtheria Vaccination/Date Given: No Hx Influenza Vaccination/Date Given: No Hx Pneumococcal Vaccination/Date Given: No Immunizations Up to Date: Yes - Review of Systems Constitutional: No Fever, No Chills Eyes: No Symptoms Ears, Nose, & Throat: No Symptoms Respiratory: No Cough, No Dyspnea Cardiac: Palpitations, No Chest Pain, No Edema, No Syncope Abdominal/Gastrointestinal: No Abdominal Pain, No Nausea, No Vomiting, No Diarrhea Genitourinary Symptoms: No Dysuria Musculoskeletal: No Back Pain, No Neck Pain Skin: No Rash Neurological: No Dizziness, No Focal Weakness, No Sensory Changes Psychological: No Symptoms Endocrine: No Symptoms All Other Systems: Reviewed and Negative - Past Medical History Pertinent Past Medical History: Yes Neurological History: Migraines Cardiac History: Other Respiratory History: Asthma Musculoskeletal History: Fibromyalgia, Fractures, Osteoarthritis Other Medical History: neuropathy. chronic pain - Past Surgical History Past Surgical History: Yes Gastrointestinal: Cholecystectomy Musculoskeletal: Orthopedic Surgery Female Surgical History: Section Other Surgical History: neck,arm surg , right pinky, 1 miscarraige - Social History Smoking Status: Current every day smoker How long have you smoked: 35 years Exposure to second hand smoke: Yes Drug Use: none Patient Lives Alone: No - Female History Hx Last Menstrual Period: 03/13/18 Hx Now: No - Nursing Vital Signs Nursing Vital Signs: Initial Vital Signs Pulse Rate 88 03/20/18 09:52 Respiratory Rate 20 03/20/18 09:52 Blood Pressure 140/83 03/20/18 09:52 O2 Sat by Pulse Oximetry 96 03/20/18 09:52 Pain Scale Pain Intensity 0 - Physical Exam General Appearance: no apparent distress, alert Eye Exam: PERRL/EOMI, eyes nml inspection Ears, Nose, Throat Exam: normal ENT inspection, moist mucous membranes Neck Exam: normal inspection, non-tender, supple Respiratory Exam: normal breath sounds, lungs clear, No respiratory distress Cardiovascular Exam: regular rate/rhythm, normal heart sounds, No edema Gastrointestinal/Abdomen Exam: soft, No tenderness, No mass Back Exam: normal inspection, No CVA tenderness, No vertebral tenderness Extremity Exam: normal inspection, normal range of motion Neurologic Exam: alert, oriented x 3, cooperative, normal mood/affect, nml cerebellar function, sensation nml, No motor deficits Skin Exam: normal color, warm, dry Lymphatic Exam: No adenopathy SpO2: 96 Oxygen Delivery: Room Air - Course Nursing assessment & vital signs reviewed: Yes EKG Interpreted by Me: Sinus Rhythm - Radiology Exams Chest X-ray Interpretation: Reviewed by me, Negative, No Pneumonia Ordered Tests: Active Orders 24 hr Category Date Time Status IV Insertion STAT Care 03/20/18 10:15 Active CHEST 2 VIEWS (PA AND LAT) Stat Exams 03/20/18 10:09 Taken CBC W DIFF Stat Lab 03/20/18 10:14 Completed CMP Stat Lab 03/20/18 10:14 Completed TROPONIN Q3H Lab 03/20/18 10:14 Completed TROPONIN Q3H Lab 03/20/18 13:15 Ordered TROPONIN Q3H Lab 03/20/18 16:15 Ordered TROPONIN Q3H Lab 03/20/18 19:15 Ordered TROPONIN Q3H Lab 03/20/18 22:15 Ordered UA W/RFX UR CULTURE Stat Lab 03/20/18 10:46 Completed Urine Triage Profile Stat Lab 03/20/18 10:46 Ordered Medication Summary Discontinued Medications Generic Name Dose Route Start Last Admin Trade Name Freq PRN Reason Stop Dose Admin Sodium Chloride 1,000 mls @ 999 mls/hr 03/20/18 10:08 03/20/18 10:15 Sodium Chloride 0.9% 1000 Ml IV 03/20/18 11:08 999 mls/hr .Q1H1M STA Administration Sodium Chloride Confirm 03/20/18 10:14 Sodium Chloride 0.9% 1000 Ml Administered 03/20/18 10:15 Dose 1,000 mls @ ud .ROUTE .STK-MED ONE Lab/Rad Data: Laboratory Result Diagrams 03/20/18 10:14 03/20/18 10:14 Laboratory Results 03/20/18 03/20/18 03/20/18 Range/Units 10:46 10:14 10:14 WBC (4.0-10.5) K/mm3 RBC (4.1-5.4) M/mm3 Hgb (12.0-16.0) gm/dl Hct (35-47) % MCV (78-100) fl MCH (26-32) pg MCHC (32-36) g/dl RDW (11.5-14.0) % Plt Count (150-450) K/mm3 MPV (6-9.5) fl Gran % (36.0-66.0) % Eos # (Auto) (0-0.5) Absolute Lymphs (auto) (1.0-4.6) Absolute Monos (auto) (0.0-1.3) Lymphocytes % (24.0-44.0) % Monocytes % (0.0-12.0) % Eosinophils % (0.00-5.0) % Basophils % (0.0-0.4) % Absolute Granulocytes (1.4-6.9) Basophils # (0-0.4) Sodium 139 (137-145) mmol/L Potassium 4.3 (3.5-5.1) mmol/L Chloride 106 (98-107) mmol/L Carbon Dioxide 25 (22-30) mmol/L Anion Gap 12.4 (5-15) MEQ/L BUN 10 (7-17) mg/dL Creatinine 0.71 (0.52-1.04) mg/dL Estimated GFR > 60.0 ML/MIN Glucose 135 H (74-106) mg/dL Calcium 8.9 (8.4-10.2) mg/dL Total Bilirubin 0.20 (0.2-1.3) mg/dL AST 60 H (14-36) U/L ALT 50 H (0-35) U/L Alkaline Phosphatase 100 (38-126) U/L Troponin I < 0.012 (0.000-0.034) ng/mL Serum Total Protein 7.0 (6.3-8.2) g/dL Albumin 3.7 (3.5-5.0) g/dL Urine Color YELLOW (YELLOW) Urine Appearance SLIGHTLY CLOUDY (CLEAR) Urine pH 6.0 (5-6) Ur Specific [place] 1.006 (1.005-1.025) Urine Protein NEGATIVE (Negative) Urine Ketones NEGATIVE (NEGATIVE) Urine Blood SMALL (0-5) Jad/ul Urine Nitrite NEGATIVE (NEGATIVE) Urine Bilirubin NEGATIVE (NEGATIVE) Urine Urobilinogen NEGATIVE (0-1) mg/dL Ur Leukocyte Esterase NEGATIVE (NEGATIVE) Urine WBC (Auto) 0-2 (0-5) /HPF Urine RBC (Auto) 0-2 (0-2) /HPF U Epithel Cells (Auto) RARE (FEW) /HPF Urine Bacteria (Auto) FEW (NEGATIVE) /HPF Urine Mucus (Auto) SLIGHT (NEGATIVE) /HPF Urine Culture Reflexed NO (NO) Urine Glucose NEGATIVE (NEGATIVE) mg/dL Slides for Path Review 03/20/18 Range/Units 10:14 WBC 7.1 (4.0-10.5) K/mm3 RBC 4.86 (4.1-5.4) M/mm3 Hgb 10.7 L (12.0-16.0) gm/dl Hct 35.9 (35-47) % MCV 73.9 L (78-100) fl MCH 22.0 L (26-32) pg MCHC 29.8 L (32-36) g/dl RDW 21.0 H (11.5-14.0) % Plt Count 220 (150-450) K/mm3 MPV 10.3 H (6-9.5) fl Gran % 76.0 H (36.0-66.0) % Eos # (Auto) 0.13 (0-0.5) Absolute Lymphs (auto) 1.07 (1.0-4.6) Absolute Monos (auto) 0.49 (0.0-1.3) Lymphocytes % 15.0 L (24.0-44.0) % Monocytes % 6.9 (0.0-12.0) % Eosinophils % 1.8 (0.00-5.0) % Basophils % 0.3 (0.0-0.4) % Absolute Granulocytes 5.40 (1.4-6.9) Basophils # 0.02 (0-0.4) Sodium (137-145) mmol/L Potassium (3.5-5.1) mmol/L Chloride (98-107) mmol/L Carbon Dioxide (22-30) mmol/L Anion Gap (5-15) MEQ/L BUN (7-17) mg/dL Creatinine (0.52-1.04) mg/dL Estimated GFR ML/MIN Glucose (74-106) mg/dL Calcium (8.4-10.2) mg/dL Total Bilirubin (0.2-1.3) mg/dL AST (14-36) U/L ALT (0-35) U/L Alkaline Phosphatase (38-126) U/L Troponin I (0.000-0.034) ng/mL Serum Total Protein (6.3-8.2) g/dL Albumin (3.5-5.0) g/dL Urine Color (YELLOW) Urine Appearance (CLEAR) Urine pH (5-6) Ur Specific [place] (1.005-1.025) Urine Protein (Negative) Urine Ketones (NEGATIVE) Urine Blood (0-5) Jad/ul Urine Nitrite (NEGATIVE) Urine Bilirubin (NEGATIVE) Urine Urobilinogen (0-1) mg/dL Ur Leukocyte Esterase (NEGATIVE) Urine WBC (Auto) (0-5) /HPF Urine RBC (Auto) (0-2) /HPF U Epithel Cells (Auto) (FEW) /HPF Urine Bacteria (Auto) (NEGATIVE) /HPF Urine Mucus (Auto) (NEGATIVE) /HPF Urine Culture Reflexed (NO) Urine Glucose (NEGATIVE) mg/dL Slides for Path Review YES - Progress Progress: improved Air Movement: good Blood Culture(s) Obtained: No Antibiotics given: No Counseled pt/family regarding: lab results, diagnosis, need for follow-up, rad results, smoking cessation - Departure Time of Disposition: 11:09 Departure Disposition: Home Clinical Impression: SVT (supraventricular tachycardia) Condition: Stable Critical Care Time: Yes Critical Care Time(excluding separately billable procedures): 30-74 minutes Referrals: ADRIAN JOE MD [Primary Care Provider] - Instructions: Arrhythmias (DC), Palpitations (DC) Additional Instructions: Please follow the instructions given to you. Please take your medication as prescribed if given. If symptoms recur or get worse, come back to the emergency room if you cannot reach your primary care physician, or call your primary care physician for an appointment. Again if your symptoms get worse, come back to the emergency room. Thanks for visiting emergency room, and let us take care of you. HAI GUNTER was seen on 03/20/18 n the Emergency Room. At that time you were treated for an emergent condition, during your visit Laboratory, Radiology and/or other procedures may have been ordered. It is very important that you follow-up with your Primary Care Physician ADRIAN JOE within the next 24-48 hours to review your Emergency Room visit and the final results of testing that was ordered. Some test results such as Urine Cultures, Blood Cultures, and other cultures if ordered will not be finalized for 24-48 hours. If you do not have a Primary Care Provider please call the medical records department at [phone] ext [phone] to obtain a copy of your results or you may sign into our patient portal to obtain these results by visiting us @ [email or web address] and completing the following steps: 1. Click on the Patient Portal link 2. Click the Patient Self Enrollment Link to complete the enrollment form and entering your 3. Once the enrollment form is completed you will receive an email with a temporary ID and password at the email address you provided. 4. Next choose a user name and password. Your user name must be at least 4 characters long and your password must be at least 4 characters long. 5. Choose a security question from the list and provide your answer to the question. If you already have signed into the Health Portal you may access your Health Care Information 28/12 by the following steps: 1. Login to our website @ [email or web address] 2. Enter your original user name and password. FAQS The [facility] Health Portal is an online tool that contains your Lab Results, Radiology Reports, Visit History, Discharge Instructions and Health Summary Lab and Radiology Results will not be available for 72 hours on the portal. The Portal is a secure site, passwords are encryted and URLs are re-written so they cannot be copied and pasted. You and authorized family members are the only ones who can access your Portal. Also there is a timeout feature that protects your information if you leave the Portal page open. If you have technical difficulty please use the Contact Us link on the page this will allow you to submit any questions you have regarding the Portal or you may contact the Medical Record Department at [phone] ext [phone].
[2018-03-20 10:36] LABS: ALBUMIN 3.7 g/dL (3.5-5.0); ALKALINE PHOSPHATASE 100 U/L (38-126); ANION GAP 12.4 MEQ/L (5-15); BLOOD UREA NITROGEN 10 mg/dL (7-17); CHLORIDE 106 mmol/L (98-107); Calcium 8.9 mg/dL (8.4-10.2); Carbon Dioxide 25 mmol/L (22-30); Creatinine 1 0.71 mg/dL (0.52-1.04); Glucose 135 mg/dL (74-106); Potassium 4.3 mmol/L (3.5-5.1); SGOT/AST 60 U/L (14-36); SGPT/ALT 50 U/L (0-35); SODIUM 139 mmol/L (137-145)
[2018-03-20 10:42] LABS: Slide Review 1 YES
[2018-03-20 11:07] LABS: Appearance SLIGHTLY CLOUDY (CLEAR); Bilirubin NEGATIVE (NEGATIVE); Blood SMALL Ery/ul (0-5); Glucose NEGATIVE (NEGATIVE); Ketones NEGATIVE (NEGATIVE); Leukocyte Esterase NEGATIVE (NEGATIVE); Nitrite NEGATIVE (NEGATIVE); Protein,Urine Dip NEGATIVE (Negative); Specific Gravity 1.006 (1.005-1.025); Urobilinogen NEGATIVE mg/dL (0-1)
[2018-03-20 11:08] LABS: Amphetamine,Urine NEGATIVE (NEGATIVE); Barbiturate,Urine NEGATIVE (NEGATIVE); Benzodiazepine,Urine NEGATIVE (NEGATIVE); Cocaine,Urine NEGATIVE (NEGATIVE); Methadone,Urine NEGATIVE (NEGATIVE); Opiate,Urine POSITIVE (NEGATIVE); PCP,Urine NEGATIVE (NEGATIVE); THC,Urine NEGATIVE (NEGATIVE)
[2018-03-20 11:16] VITALS: BP 108/68; PULSE 71; O2SAT 98
--- NOTE | 2018-03-20 16:56 | XRAY ---
Indication: Tachycardia, short of breath, and chest tightness. Comparison: October 22, 2016. PA/lateral chest is clear. Heart is not enlarged. Bony thorax intact again with lower cervical fusion. No new/acute findings. Impression: Nonacute chest.
== END 2018-03-20 11:24 | disposition home or self-care (01) ==
LOC: ED 09:45
DX: I47.1 Supraventricular tachycardia (principal); R07.89 Other chest pain
CPT/HCPCS: 36000; 36415; 71046; 80053; 80307; 81001; 84484; 85025; 96360; 99284

== ENCOUNTER 2018-08-16 04:35 | Emergency (ER) | payer OTHER ==
[2018-08-16] MEDS ORDERED: Sodium Chloride 0.9% 1000 ML 1,000 ML IV STA ×2 (05:07→06:42)
[2018-08-16] MEDS ORDERED: Zofran 4 MG/2 ML VIAL IV ONE ×2 (05:07→07:02)
[2018-08-16] MEDS ORDERED: Hydromorphone 1 mg/ml Ampule IV ONE ×2 (05:07→09:03)
--- NOTE | 2018-08-16 05:07 | ERPHSYRPT ---
- History of Present Illness Historian: patient Exam Limitations: clinical condition Patient Subjective Stated Complaint: went to [facility] two days ago and was diagnosed with the flu. states was fine yesterday, had a migraine but started having abd pain. feels like intestines are being ripped out. started vomiting about midnight. C/O pain in left lower abdomen. stools normal. Triage Nursing Assessment: A/O, speech clear, obvious discomfort, c/o abd pain, tense and squirming at times. states pain comes and goes, gets relief after she vomits. emesis yellow bile. states stools are normal. ABD large, round, SNT to palpation. c/o pain in left lower abdomen. skin pink, warm and dry. lips pale Timing/Duration: today, sudden, worse Quality: sharpness, stabbing Abdominal Pain Onset Location: LLQ Modifying Factors: Improves With: vomiting. Worsens With: breathing, coughing, defecating, urinating Associated Symptoms: nausea, vomiting, No back, No chest pain, No diaphoresis, No diarrhea, No fever/chills, No neck pain, No shortness of breath, No weakness Previous symptoms: same symptoms as today Hx Tetanus, Diphtheria Vaccination/Date Given: No Hx Influenza Vaccination/Date Given: No Hx Pneumococcal Vaccination/Date Given: No Immunizations Up to Date: Yes <RYLEE BEE - Last Filed: 08/16/18 07:02> <MARKY SUGGS - Last Filed: 08/16/18 09:16> - History of Present Illness Time Seen by Provider: 08/16/18 04:55 Physician History: 48 y/o white female presents with sudden onset of left lower quad abd pain and associated n/v without diarrhea. no radiation of pain. pain sharp and stabbing. pt had similar episode 2 days ago at [facility] ED where she was diagnosed with the flu. denies urinary sx. no vaginal bleeding or abnl discharge. ( RYLEE BEE) Allergies/Adverse Reactions: azithromycin [From Zithromax Z-Pedro] Allergy (Verified 03/20/18 10:12) codeine Allergy (Verified 03/20/18 10:12) shellfish derived Allergy (Verified 03/20/18 10:12) Home Medications: Cyclobenzaprine HCl 10 mg [Cyclobenzaprine 10 MG] 10 mg PO HS 08/16/18 [ History] Ondansetron ODT 4 MG [Zofran Odt 4 mg] 4 mg PO Q6H PRN PRN 08/16/18 [ History] Pregabalin [Lyrica 150Mg] 150 mg PO BID 08/16/18 [History] Varenicline Tartrate [Chantix] 1 each PO DAILY 08/16/18 [History] - Review of Systems Constitutional: No Symptoms Eyes: No Symptoms Ears, Nose, & Throat: No Symptoms Respiratory: No Symptoms Cardiac: No Symptoms Abdominal/Gastrointestinal: Abdominal Pain, Nausea, Vomiting, No Diarrhea Genitourinary Symptoms: No Symptoms, No Dysuria, No Frequency, No Hematuria Musculoskeletal: No Symptoms Skin: No Symptoms Neurological: No Symptoms Psychological: No Symptoms Endocrine: No Symptoms Hematologic/Lymphatic: No Symptoms Immunological/Allergic: No Symptoms All Other Systems: Reviewed and Negative <RYLEE BEE - Last Filed: 08/16/18 07:02> - Past Medical History Pertinent Past Medical History: Yes Neurological History: Migraines Cardiac History: Arrhythmia Respiratory History: Asthma, COPD Musculoskeletal History: Fibromyalgia, Fractures, Osteoarthritis GI Medical History: No Pertinent History History: No Pertinent History Female Reproductive Disorders: No Pertinent History Other Medical History: neuropathy. chronic pain - Past Surgical History Past Surgical History: Yes Neuro Surgical History: No Pertinent History Cardiac: No Pertinent History Respiratory: No Pertinent History Gastrointestinal: Cholecystectomy Musculoskeletal: Orthopedic Surgery Female Surgical History: Section Other Surgical History: neck,arm surg , right pinky, 1 miscarraige - Social History Smoking Status: Current every day smoker How long have you smoked: 35 years Exposure to second hand smoke: Yes Drug Use: none Patient Lives Alone: No - Female History Hx Now: No <RYLEE BEE - Last Filed: 08/16/18 07:02> - Physical Exam General Appearance: moderate distress, alert, obese Eye Exam: PERRL/EOMI Ears, Nose, Throat Exam: normal ENT inspection, moist mucous membranes Neck Exam: normal inspection, non-tender, supple, full range of motion Respiratory Exam: normal breath sounds, lungs clear, airway intact, No chest tenderness, No respiratory distress Cardiovascular Exam: regular rate/rhythm, normal heart sounds, normal peripheral pulses Gastrointestinal/Abdomen Exam: soft, normal bowel sounds, tenderness (llq), guarding, rebound Pelvic Exam: not done Rectal Exam: not done Back Exam: normal inspection, normal range of motion, No CVA tenderness, No vertebral tenderness Extremity Exam: normal inspection, normal range of motion, pelvis stable Neurologic Exam: alert, oriented x 3, cooperative, director post II-XII nml as tested Skin Exam: normal color, warm, dry Lymphatic Exam: No adenopathy SpO2 Interpretation: normal SpO2: 98 O2 Delivery: Room Air <RYLEE BEE - Last Filed: 08/16/18 07:02> - Nursing Vital Signs Nursing Vital Signs: Initial Vital Signs Temperature 98.5 F 08/16/18 04:35 Pulse Rate 67 08/16/18 04:35 Respiratory Rate 24 08/16/18 04:35 Blood Pressure 173/104 08/16/18 04:35 O2 Sat by Pulse Oximetry 98 08/16/18 04:35 Pain Scale Pain Intensity 4 - Course Nursing assessment & vital signs reviewed: Yes - CT Exams Abdomen/Pelvis CT Interpretation: Other (6-7m,m L UPJ stone, with partial obstruction. L common illeac fusiform aneurysm.) <MARKY SUGGS - Last Filed: 08/16/18 09:16> Ordered Tests: Active Orders 24 hr Category Date Time Status Clean Catch Urine Specimen STAT Care 08/16/18 05:07 Active IV Insertion STAT Care 08/16/18 05:07 Active NPO (ED) STAT Care 08/16/18 05:07 Active ABDOMEN AND PELVIS W/0 CONTRAS [CT] Stat Exams 08/16/18 05:08 Completed AMYLASE Stat Lab 08/16/18 05:18 Completed CBC W DIFF Stat Lab 08/16/18 05:18 Completed CMP Stat Lab 08/16/18 05:18 Completed CULTURE,URINE Stat Lab 08/16/18 06:06 Received LIPASE Stat Lab 08/16/18 05:18 Completed Lactic Acid Stat Lab 08/16/18 05:25 Completed Lactic Acid Stat Lab 08/16/18 07:29 Ordered UA W/RFX UR CULTURE Stat Lab 08/16/18 06:06 Completed Medication Summary Discontinued Medications Generic Name Dose Route Start Last Admin Trade Name Freq PRN Reason Stop Dose Admin Hydromorphone HCl 1 mg 08/16/18 05:07 08/16/18 05:16 Hydromorphone 1 Mg/Ml Ampule IV 08/16/18 05:08 1 mg STAT ONE Administration Hydromorphone HCl Confirm 08/16/18 05:11 Hydromorphone 1 Mg/Ml Ampule Administered 08/16/18 05:12 Dose 1 mg .ROUTE .STK-MED ONE Hydromorphone HCl 1 mg 08/16/18 09:03 Hydromorphone 1 Mg/Ml Ampule IV 08/16/18 09:04 STAT ONE Sodium Chloride 1,000 mls @ 999 mls/hr 08/16/18 05:07 08/16/18 06:23 Sodium Chloride 0.9% 1000 Ml IV 08/16/18 06:07 Infused .Q1H1M STA Infusion Sodium Chloride Confirm 08/16/18 05:12 Sodium Chloride 0.9% 1000 Ml Administered 08/16/18 05:13 Dose 1,000 mls @ ud .ROUTE .STK-MED ONE Sodium Chloride 1,000 mls @ 999 mls/hr 08/16/18 06:42 08/16/18 07:03 Sodium Chloride 0.9% 1000 Ml IV 08/16/18 07:42 999 mls/hr .Q1H1M STA Administration Sodium Chloride Confirm 08/16/18 06:58 Sodium Chloride 0.9% 1000 Ml Administered 08/16/18 06:59 Dose 1,000 mls @ ud .ROUTE .STK-MED ONE Ketorolac Tromethamine 30 mg 08/16/18 06:08 08/16/18 06:11 Toradol 30 Mg Injection IV 08/16/18 06:09 30 mg STAT ONE Administration Ketorolac Tromethamine Confirm 08/16/18 06:08 Toradol 30 Mg Injection Administered 08/16/18 06:09 Dose 30 mg .ROUTE .STK-MED ONE Ondansetron HCl 4 mg 08/16/18 05:07 08/16/18 05:14 Zofran 4 Mg/2 Ml Vial IV 08/16/18 05:08 4 mg STAT ONE Administration Ondansetron HCl Confirm 08/16/18 05:11 Zofran 4 Mg/2 Ml Vial Administered 08/16/18 05:12 Dose 4 mg .ROUTE .STK-MED ONE Ondansetron HCl 4 mg 08/16/18 07:02 08/16/18 07:09 Zofran 4 Mg/2 Ml Vial IV 08/16/18 07:03 4 mg STAT ONE Administration Ondansetron HCl Confirm 08/16/18 07:08 Zofran 4 Mg/2 Ml Vial Administered 08/16/18 07:09 Dose 4 mg .ROUTE .K-[facility] ONE Lab/Rad Data: Laboratory Result Diagrams 08/16/18 05:18 08/16/18 05:18 Laboratory Results 08/16/18 08/16/18 08/16/18 Range/Units 06:06 05:25 05:18 WBC (4.0-10.5) K/mm3 RBC (4.1-5.4) M/mm3 Hgb (12.0-16.0) gm/dl Hct (35-47) % MCV (78-100) fl MCH (26-32) pg MCHC (32-36) g/dl RDW (11.5-14.0) % Plt Count (150-450) K/mm3 MPV (6-9.5) fl Gran % (36.0-66.0) % Eos # (Auto) (0-0.5) Absolute Lymphs (auto) (1.0-4.6) Absolute Monos (auto) (0.0-1.3) Lymphocytes % (24.0-44.0) % Monocytes % (0.0-12.0) % Eosinophils % (0.00-5.0) % Basophils % (0.0-0.4) % Absolute Granulocytes (1.4-6.9) Basophils # (0-0.4) Sodium 142 (137-145) mmol/L Potassium 4.0 (3.5-5.1) mmol/L Chloride 107 (98-107) mmol/L Carbon Dioxide 25 (22-30) mmol/L Anion Gap 13.4 (5-15) MEQ/L BUN 8 (7-17) mg/dL Creatinine 0.91 (0.52-1.04) mg/dL Estimated GFR > 60.0 ML/MIN Glucose 154 H (74-106) mg/dL Lactic Acid 2.2 H (0.4-2.0) Calcium 9.2 (8.4-10.2) mg/dL Total Bilirubin 0.30 (0.2-1.3) mg/dL AST 63 H (14-36) U/L ALT 64 H (0-35) U/L Alkaline Phosphatase 104 (38-126) U/L Serum Total Protein 7.9 (6.3-8.2) g/dL Albumin 4.3 (3.5-5.0) g/dL Amylase 73 (30-110) U/L Lipase 169 (23-300) U/L Urine Color YELLOW (YELLOW) Urine Appearance SLIGHTLY CLOUDY (CLEAR) Urine pH 6.0 (5-6) Ur Specific Ramona 1.020 (1.005-1.025) Urine Protein 30 (Negative) Urine Ketones NEGATIVE (NEGATIVE) Urine Blood MODERATE (0-5) Jad/ul Urine Nitrite NEGATIVE (NEGATIVE) Urine Bilirubin NEGATIVE (NEGATIVE) Urine Urobilinogen NEGATIVE (0-1) mg/dL Ur Leukocyte Esterase NEGATIVE (NEGATIVE) Urine WBC (Auto) 3-5 (0-5) /HPF Urine RBC (Auto) 51-100 (0-2) /HPF U Epithel Cells (Auto) RARE (FEW) /HPF Urine Bacteria (Auto) RARE (NEGATIVE) /HPF Urine Mucus (Auto) SLIGHT (NEGATIVE) /HPF Urine Culture Reflexed YES (NO) Urine Glucose 50 (NEGATIVE) mg/dL Slides for Path Review 08/16/18 Range/Units 05:18 WBC 8.2 (4.0-10.5) K/mm3 RBC 4.39 (4.1-5.4) M/mm3 Hgb 11.7 L (12.0-16.0) gm/dl Hct 38.6 (35-47) % MCV 87.9 (78-100) fl MCH 26.6 (26-32) pg MCHC 30.3 L (32-36) g/dl RDW 21.3 H (11.5-14.0) % Plt Count 185 (150-450) K/mm3 MPV 11.1 H (6-9.5) fl Gran % 79.9 H (36.0-66.0) % Eos # (Auto) 0.13 (0-0.5) Absolute Lymphs (auto) 0.99 L (1.0-4.6) Absolute Monos (auto) 0.50 (0.0-1.3) Lymphocytes % 12.0 L (24.0-44.0) % Monocytes % 6.1 (0.0-12.0) % Eosinophils % 1.6 (0.00-5.0) % Basophils % 0.4 (0.0-0.4) % Absolute Granulocytes 6.58 (1.4-6.9) Basophils # 0.03 (0-0.4) Sodium (137-145) mmol/L Potassium (3.5-5.1) mmol/L Chloride (98-107) mmol/L Carbon Dioxide (22-30) mmol/L Anion Gap (5-15) MEQ/L BUN (7-17) mg/dL Creatinine (0.52-1.04) mg/dL Estimated GFR ML/MIN Glucose (74-106) mg/dL Lactic Acid (0.4-2.0) Calcium (8.4-10.2) mg/dL Total Bilirubin (0.2-1.3) mg/dL AST (14-36) U/L ALT (0-35) U/L Alkaline Phosphatase (38-126) U/L Serum Total Protein (6.3-8.2) g/dL Albumin (3.5-5.0) g/dL Amylase (30-110) U/L Lipase (23-300) U/L Urine Color (YELLOW) Urine Appearance (CLEAR) Urine pH (5-6) Ur Specific Ramona (1.005-1.025) Urine Protein (Negative) Urine Ketones (NEGATIVE) Urine Blood (0-5) Jad/ul Urine Nitrite (NEGATIVE) Urine Bilirubin (NEGATIVE) Urine Urobilinogen (0-1) mg/dL Ur Leukocyte Esterase (NEGATIVE) Urine WBC (Auto) (0-5) /HPF Urine RBC (Auto) (0-2) /HPF U Epithel Cells (Auto) (FEW) /HPF Urine Bacteria (Auto) (NEGATIVE) /HPF Urine Mucus (Auto) (NEGATIVE) /HPF Urine Culture Reflexed (NO) Urine Glucose (NEGATIVE) mg/dL Slides for Path Review YES - Progress Progress: improved, re-examined Counseled pt/family regarding: lab results, diagnosis, need for follow-up <RYLEE BEE - Last Filed: 08/16/18 07:02> <MARKY SUGGS - Last Filed: 08/16/18 09:16> - Progress Progress Note: 08/16/18 06:44 pt states pain much better now. 06/16. after toradol. 08/16/18 06:59 signed out/transfer of care to dr. suggs. ct pending. (RYLEE BEE) CT results show partially obstructing stone 6-7mm in L UPJ. Also L common illiac artery fusiform aneurysm. Pt was told to increase fluid intake. Ibuprofen and Zofran Rx will be e-scribed to the pharmacy. Pt should come back if pain increases and not resolved, as she might need a stent placed, by Urology. I did contact Dr Joya for vascular surgery in [facility] and he told me to get an appointment for the pt on Wednesday at 10:00AM, in his office for scheduling treatment for the aneurysm. 08/16/18 09:05 (MARKY SUGGS) - Departure Departure Disposition: Home Critical Care Time: No <RYLEE BEE - Last Filed: 08/16/18 07:02> - Departure Time of Disposition: 09:11 <MARKY SUGGS - Last Filed: 08/16/18 09:16> - Departure Clinical Impression: Hematuria Condition: Stable Referrals: ADRIAN JOE MD [Primary Care Provider] - Additional Instructions: drink plenty of fluids. add ibuprofen 600mg orally with food 3 times daily. use your home narcotics for pain. If pain increases, come back to ED for Urology involevemt and stent placement. F/U with Dr Joya from [facility], in his office on Wednesday at 10:00, for Aneurysm treatment. Prescriptions: Ondansetron ODT 4 MG [Zofran Odt 4 mg] 4 mg PO Q6H PRN PRN 10 Days #30 tab.rapdis PRN Reason: Nausea/Vomiting Ibuprofen 600 mg PO QID PRN #40 tablet PRN Reason: Pain
[2018-08-16] MEDS ORDERED: Hydromorphone 1 mg/ml Ampule ONE ×2 (05:11→09:05)
[2018-08-16] MEDS ORDERED: Zofran 4 MG/2 ML VIAL ONE ×2 (05:11→07:08)
[2018-08-16] MEDS ORDERED: Sodium Chloride 0.9% 1000 ML 1,000 ML ONE ×2 (05:12→06:58)
[2018-08-16 05:19] LABS: BASOPHIL % 0.4 % (0.0-0.4); Basophil (Absolute #) 0.03 (0-0.4); Eosinophil % 1.6 % (0.00-5.0); Eosinophil (Absolute #) 0.13 (0-0.5); Granulocyte Absolute (ANC) 6.58 (1.4-6.9); Granulocytes % 79.9 % (36.0-66.0); Hematocrit 38.6 % (35-47); Hemoglobin 11.7 gm/dl (12.0-16.0); Lymphocyte (Absolute #) 0.99 (1.0-4.6); Mean Cell Volume 87.9 fl (78-100); Mean Corpuscular Hgb Concent. 30.3 g/dl (32-36); Mean Platelet Volume 11.1 fl (6-9.5); Monocytes % 6.1 % (0.0-12.0); Platelet Count 185 K/mm3 (150-450); Red Blood Count 4.39 M/mm3 (4.1-5.4); Red Cell Distribution Width 21.3 % (11.5-14.0); White Blood Count 8.2 K/mm3 (4.0-10.5)
[2018-08-16 05:20] LABS: Mean Corpuscular Hemoglobin 26.6 pg (26-32)
[2018-08-16 05:29] LABS: ALBUMIN 4.3 g/dL (3.5-5.0); ALKALINE PHOSPHATASE 104 U/L (38-126); AMYLASE 73 U/L (30-110); ANION GAP 13.4 MEQ/L (5-15); BLOOD UREA NITROGEN 8 mg/dL (7-17); CHLORIDE 107 mmol/L (98-107); Calcium 9.2 mg/dL (8.4-10.2); Carbon Dioxide 25 mmol/L (22-30); Creatinine 1 0.91 mg/dL (0.52-1.04); Glucose 154 mg/dL (74-106); LIPASE 169 U/L (23-300); SGOT/AST 63 U/L (14-36); SGPT/ALT 64 U/L (0-35); SODIUM 142 mmol/L (137-145); Total Protein 7.9 g/dL (6.3-8.2)
[2018-08-16 05:29] LABS: Lactic Acid 2.2 (0.4-2.0)
[2018-08-16] MEDS ORDERED: TORAdol 30 mg Injection ONE (06:08)
[2018-08-16] MEDS ORDERED: TORAdol 30 mg Injection IV ONE (06:08)
[2018-08-16 06:46] LABS: Appearance SLIGHTLY CLOUDY (CLEAR); Bilirubin NEGATIVE (NEGATIVE); Blood MODERATE Ery/ul (0-5); Epithelial Cells RARE /HPF (FEW); Glucose 50 mg/dL (NEGATIVE); Ketones NEGATIVE (NEGATIVE); Leukocyte Esterase NEGATIVE (NEGATIVE); Mucus SLIGHT /HPF (NEGATIVE); Nitrite NEGATIVE (NEGATIVE); Protein,Urine Dip 30 (Negative); RBC 51-100 /HPF (0-2); Urobilinogen NEGATIVE mg/dL (0-1)
[2018-08-16 06:46] LABS: Slide Review 1 YES
--- NOTE | 2018-08-16 08:41 | XRAY ---
Indication: Left lower quadrant pain, nausea, and vomiting. Multiple contiguous axial images obtained through the abdomen and pelvis without contrast as ordered. Comparison: None Lung bases demonstrates minimal bibasilar dependent atelectasis. No infiltrate or effusion. Heart is not enlarged. Noncontrasted stomach and bowel loops appear nonobstructed. Normal appendix. No free fluid/air. 6-7 mm left UPJ calculus with mild hydronephrosis and minimal perinephric stranding. No perinephric fluid. Diffuse fatty liver. Splenomegaly measuring 18 cm in greatest axial dimension. Uterus demonstrates multiple nabothian cysts in the lower uterine segment, largest 2 cm. Previous cholecystectomy. Remaining liver, pancreas, spleen, adrenal glands, right kidney, right ureter, and bladder appear unremarkable for noncontrast exam. Minimal aortoiliac calcifications. 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 Osseous structures intact with minimal degenerative changes throughout the spine and mild levoscoliosis centered at L4. Impression: 1. 6-7 mm left UPJ calculus producing partial obstruction. 2. Left common iliac artery fusiform aneurysm. 3. Fatty liver, uterine nabothian cysts, and splenomegaly. CT DI 28.13
[2018-08-16 08:43] LABS: Bacteria RARE /HPF (NEGATIVE)
[2018-08-16 09:18] VITALS: BP 139/88; PULSE 79; O2SAT 96
== END 2018-08-16 10:40 | disposition short-term general hospital (02) ==
LOC: ED 04:35
DX: R31.9 Hematuria, unspecified (principal); R11.2 Nausea with vomiting, unspecified; J44.9 Chronic obstructive pulmonary disease, unspecified; M19.90 Unspecified osteoarthritis, unspecified site; M79.7 Fibromyalgia; G62.9 Polyneuropathy, unspecified; Z79.899 Other long term (current) drug therapy
CPT/HCPCS: 36000; 36415; 74176; 80053; 81001; 82150; 83605; 83690; 85025; 87086; 96360; 96361; 96374; 96375; 96376; 99285; J1170; J1885; J2405

== ENCOUNTER 2019-01-22 22:38 | Emergency (ER) | payer OTHER ==
[2019-01-22] MEDS ORDERED: BABY ASPIRIN 81 MG CHEW PO ONE (23:15)
[2019-01-22] MEDS ORDERED: BABY ASPIRIN 81 MG CHEW ONE (23:23)
--- NOTE | 2019-01-22 23:44 | ERPHSYRPT ---
- History of Present Illness Time Seen by Provider: 01/22/19 23:10 Historian: patient Exam Limitations: no limitations Patient Subjective Stated Complaint: sharp sternum pain rating 7/10 radiating to center of back. started at 2100 today, no alleviating factors. pt reports sudden onset neck and shoulder pain last wednesday and wednesday that has since gone away. Triage Nursing Assessment: pt aox3, lungs clear bilaterally all lobes, pt reports increased pain when taking a deep breath. bowel sounds present x4 quads. current pain scale 3/10. no edema noted. cap refill immediate. Physician History: 49 y/o white female presents with central substernal chest pain sharp goes through to back present with coughing and deep breath. pt is a smoker. pt has h/ o controlled supraventricular tachycardia. she has no h/o mi Timing/Duration: today, other (did have right lat neck and right upper lung pain with deep breath 2 days ago) Location: substernal Chest Pain Radiation: no radiation Severity of Pain-Max: mild Severity of Pain-Current: mild Modifying Factors: Improves With: breathing Associated Symptoms: hurts to breathe Prior Chest Pain/Cardiac Workup: no prior chest pain Aspirin Treatment Today: no aspirin today Allergies/Adverse Reactions: azithromycin [From Zithromax Z-Pedro] Allergy (Verified 03/20/18 10:12) codeine Allergy (Verified 03/20/18 10:12) shellfish derived Allergy (Verified 03/20/18 10:12) Home Medications: Cyclobenzaprine HCl 10 mg [Cyclobenzaprine 10 MG] 10 mg PO BID PRN [History] Pregabalin [Lyrica 150Mg] 150 mg PO BID 08/16/18 [History] Hydrocodone Bit/Acetaminophen [Hydrocodon-Acetaminophn 10-325] 1 each PO BID PRN 01/22/19 [History] Metoprolol Tartrate 25 mg [Lopressor 25MG Tab] 50 mg PO BID 01/22/19 [ History] Rizatriptan Benzoate [Maxalt] 10 mg PO DAILY PRN 01/22/19 [History] Topiramate 25 mg [Topamax 25 MG] 50 mg PO BID 01/22/19 [History] Hx Tetanus, Diphtheria Vaccination/Date Given: No Hx Influenza Vaccination/Date Given: No Hx Pneumococcal Vaccination/Date Given: No - Review of Systems Constitutional: No Symptoms Eyes: No Symptoms Ears, Nose, & Throat: No Symptoms Respiratory: Cough Cardiac: Chest Pain (with cough and deep breath only) Abdominal/Gastrointestinal: No Symptoms Genitourinary Symptoms: No Symptoms Musculoskeletal: No Symptoms Skin: No Symptoms Neurological: No Symptoms Psychological: No Symptoms Endocrine: No Symptoms Hematologic/Lymphatic: No Symptoms Immunological/Allergic: No Symptoms All Other Systems: Reviewed and Negative - Past Medical History Pertinent Past Medical History: Yes Neurological History: Migraines ENT History: No Pertinent History Cardiac History: Arrhythmia Respiratory History: Asthma, COPD Musculoskeletal History: Fibromyalgia, Fractures, Osteoarthritis GI Medical History: No Pertinent History History: No Pertinent History Female Reproductive Disorders: No Pertinent History Other Medical History: neuropathy. chronic pain. SVT - Past Surgical History Past Surgical History: Yes Neuro Surgical History: No Pertinent History Cardiac: No Pertinent History Respiratory: No Pertinent History Gastrointestinal: Cholecystectomy Musculoskeletal: Orthopedic Surgery Female Surgical History: Section Other Surgical History: neck,arm surg , right pinky, 1 miscarriage, 1 section - Social History Smoking Status: Current every day smoker How long have you smoked: 35 years Exposure to second hand smoke: Yes Drug Use: none Patient Lives Alone: No - Female History Hx Now: No - Nursing Vital Signs Nursing Vital Signs: Initial Vital Signs Temperature 98.7 F 01/22/19 23:03 Pulse Rate 80 01/22/19 23:03 Respiratory Rate 16 01/22/19 23:03 Blood Pressure 167/81 01/22/19 23:03 O2 Sat by Pulse Oximetry 98 01/22/19 23:03 Pain Scale Pain Intensity 0 - Physical Exam General Appearance: no apparent distress, alert, anxiety Eye Exam: PERRL/EOMI, eyes nml inspection Ears, Nose, Throat Exam: normal ENT inspection, moist mucous membranes Neck Exam: normal inspection, non-tender, supple, full range of motion Respiratory Exam: normal breath sounds, chest tenderness (with cough and deep breath), lungs clear, airway intact, No respiratory distress, No accessory muscle use, No rhonchi, No wheezing, No stridor Cardiovascular Exam: regular rate/rhythm, normal heart sounds, normal peripheral pulses Gastrointestinal/Abdomen Exam: soft, normal bowel sounds, tenderness Pelvic Exam: not done Rectal Exam: not done Back Exam: normal inspection, normal range of motion, No CVA tenderness, No vertebral tenderness Extremity Exam: normal inspection, normal range of motion, pelvis stable Neurologic Exam: alert, oriented x 3, cooperative, sanitation director II-XII nml as tested Skin Exam: normal color, warm, dry Lymphatic Exam: adenopathy SpO2 Interpretation: normal SpO2: 98 O2 Delivery: Room Air - Course Nursing assessment & vital signs reviewed: Yes EKG Interpreted by Me: RATE (83), Sinus Rhythm, NORMAL AXIS, NORMAL INTERVALS, NORMAL QRS, Other (no changes compared to ekg dated 03/20/18) Ordered Tests: Active Orders 24 hr Category Date Time Status Marbleizing Machine Tender STAT Care 01/22/19 23:16 Active EKG-ER Only STAT Care 01/22/19 23:15 Active IV Insertion STAT Care 01/22/19 23:15 Active CHEST 1 VIEW (PORTABLE) Stat Exams 01/22/19 23:16 Taken CBC W DIFF Stat Lab 01/22/19 23:15 Completed CMP Stat Lab 01/22/19 23:15 Completed NT PRO BNP Stat Lab 01/22/19 23:15 Completed TROPONIN Q3H Lab 01/22/19 23:30 Completed TROPONIN Q3H Lab 01/23/19 02:30 Ordered TROPONIN Q3H Lab 01/23/19 05:30 Ordered TROPONIN Q3H Lab 01/23/19 08:30 Ordered TROPONIN Q3H Lab 01/23/19 11:30 Ordered Medication Summary Discontinued Medications Generic Name Dose Route Start Last Admin Trade Name Freq PRN Reason Stop Dose Admin Aspirin 324 mg 01/22/19 23:15 01/22/19 23:22 Baby Aspirin 81 Mg Chew PO 01/22/19 23:16 324 mg STAT ONE Administration Aspirin Confirm 01/22/19 23:23 Baby Aspirin 81 Mg Chew Administered 01/22/19 23:24 Dose 324 mg .ROUTE .STK-MED ONE Ceftriaxone Sodium/Dextrose 1 g in 50 mls @ 100 mls/hr 01/23/19 00:41 00:52 Rocephin 1 Gm-D5w 50 Ml Bag IV 01/23/19 01:10 100 ml/hr STAT STA 100 mls/hr Administration Ceftriaxone Sodium/Dextrose Confirm 01/23/19 00:44 Rocephin 1 Gm-D5w 50 Ml Bag Administered 01/23/19 00:45 Dose 1 g in 50 mls @ ud IV .STK-MED ONE Lab/Rad Data: Laboratory Result Diagrams 01/22/19 23:15 01/22/19 23:15 Laboratory Results 01/22/19 01/22/19 01/22/19 Range/Units 23:30 23:15 23:15 WBC 6.6 (4.0-10.5) K/mm3 RBC 4.80 (4.1-5.4) M/mm3 Hgb 12.3 (12.0-16.0) gm/dl Hct 40.5 (35-47) % MCV 84.4 (78-100) fl MCH 25.6 L (26-32) pg MCHC 30.4 L (32-36) g/dl RDW 19.5 H (11.5-14.0) % Plt Count 161 (150-450) K/mm3 MPV 11.7 H (6-9.5) fl Gran % 65.8 (36.0-66.0) % Eos # (Auto) 0.11 (0-0.5) Absolute Lymphs (auto) 1.72 (1.0-4.6) Absolute Monos (auto) 0.40 (0.0-1.3) Lymphocytes % 26.1 (24.0-44.0) % Monocytes % 6.1 (0.0-12.0) % Eosinophils % 1.7 (0.00-5.0) % Basophils % 0.3 (0.0-0.4) % Absolute Granulocytes 4.34 (1.4-6.9) Basophils # 0.02 (0-0.4) Sodium 141 (137-145) mmol/L Potassium 3.5 (3.5-5.1) mmol/L Chloride 108 H (98-107) mmol/L Carbon Dioxide 23 (22-30) mmol/L Anion Gap 13.9 (5-15) MEQ/L BUN 9 (7-17) mg/dL Creatinine 0.77 (0.52-1.04) mg/dL Estimated GFR > 60.0 ML/MIN Glucose 113 H (74-106) mg/dL Calcium 9.6 (8.4-10.2) mg/dL Total Bilirubin 0.40 (0.2-1.3) mg/dL AST 98 H (14-36) U/L ALT 69 H (0-35) U/L Alkaline Phosphatase 101 (38-126) U/L Troponin I < 0.012 (0.000-0.034) ng/mL NT-Pro-B Natriuret Pep 30.8 (0-900) pg/mL Serum Total Protein 8.6 H (6.3-8.2) g/dL Albumin 4.2 (3.5-5.0) g/dL - Progress Progress: improved, re-examined Air Movement: good Progress Note: 01/23/19 01:23 cxr-right basilar infiltrate versus atelectasis Blood Culture(s) Obtained: No Antibiotics given: Yes Counseled pt/family regarding: lab results, diagnosis, need for follow-up, rad results - Departure Departure Disposition: Home Clinical Impression: Lung infiltrate Condition: Stable Critical Care Time: No Referrals: ADRIAN JOE MD [NON-STAFF PHY W/O PRIVILEGES] - Additional Instructions: take medications as prescribed. follow up with primary doctor for further management Prescriptions: Cefdinir 300 mg PO BID 7 Days #14 capsule
[2019-01-22 23:52] LABS: BASOPHIL % 0.3 % (0.0-0.4); Basophil (Absolute #) 0.02 (0-0.4); Eosinophil % 1.7 % (0.00-5.0); Eosinophil (Absolute #) 0.11 (0-0.5); Granulocyte Absolute (ANC) 4.34 (1.4-6.9); Granulocytes % 65.8 % (36.0-66.0); Hematocrit 40.5 % (35-47); Hemoglobin 12.3 gm/dl (12.0-16.0); Lymphocyte (Absolute #) 1.72 (1.0-4.6); Lymphocytes % 26.1 % (24.0-44.0); Mean Cell Volume 84.4 fl (78-100); Mean Corpuscular Hemoglobin 25.6 pg (26-32); Mean Corpuscular Hgb Concent. 30.4 g/dl (32-36); Mean Platelet Volume 11.7 fl (6-9.5); Monocytes % 6.1 % (0.0-12.0); Platelet Count 161 K/mm3 (150-450); Red Cell Distribution Width 19.5 % (11.5-14.0); White Blood Count 6.6 K/mm3 (4.0-10.5)
[2019-01-23 00:18] LABS: ALBUMIN 4.2 g/dL (3.5-5.0); ALKALINE PHOSPHATASE 101 U/L (38-126); ANION GAP 13.9 MEQ/L (5-15); BLOOD UREA NITROGEN 9 mg/dL (7-17); CHLORIDE 108 mmol/L (98-107); Calcium 9.6 mg/dL (8.4-10.2); Carbon Dioxide 23 mmol/L (22-30); Creatinine 1 0.77 mg/dL (0.52-1.04); Glucose 113 mg/dL (74-106); NT PRO BNP 30.8 pg/mL (0-900); Potassium 3.5 mmol/L (3.5-5.1); SGOT/AST 98 U/L (14-36); SGPT/ALT 69 U/L (0-35); SODIUM 141 mmol/L (137-145); Total Protein 8.6 g/dL (6.3-8.2)
[2019-01-23] MEDS ORDERED: ROCEPHIN 1 Gm-D5w 50 ml Bag** 1 G/50 ML IVPB IV STA (00:41)
[2019-01-23] MEDS ORDERED: ROCEPHIN 1 Gm-D5w 50 ml Bag** 1 G/50 ML IVPB IV ONE (00:44)
[2019-01-23 01:24] VITALS: BP 147/80; PULSE 75
[2019-01-23 01:25] VITALS: O2SAT 98
--- NOTE | 2019-01-23 08:41 | XRAY ---
Indication: Chest pain. Comparison: March 20 Portable chest demonstrates new hazy right base interstitial alveolar opacity. Remaining heart and lungs unremarkable. Bony thorax intact.
== END 2019-01-23 01:30 | disposition home or self-care (01) ==
LOC: ED 22:38
DX: R91.8 Other nonspecific abnormal finding of lung field (principal)
CPT/HCPCS: 36000; 36415; 71045; 80053; 83880; 84484; 85025; 93005; 93041; 96365; 99284; J0696; A9270-GY

== ENCOUNTER 2019-04-26 08:59 | Day surgery (SDC) | payer OTHER ==
[2019-04-26] MEDS ORDERED: LIDOCAINE HCL 2% 100 MG/5 ML IJ ONE (09:00)
--- NOTE | 2019-04-26 12:23 | XRAY ---
Indication: Bilateral L4-S1 MBB. Intraoperative fluoroscopy was provided for 12 seconds. Single digital spot image submitted for interpretation demonstrates posterior needle tips projecting over the expected course of the left and right L4-S1 nerve roots. Correlate with intraoperative findings/report. Incidental partially visualized bilateral iliac stent grafts.
--- NOTE | 2019-04-26 12:27 | XRAY ---
12 seconds fluoroscopy time in surgery for bilateral L4-S1 MBB.
[2019-04-26] MEDS ORDERED: Lactated Ringers 1,000 ML IV ONE (16:16)
== END 2019-04-26 10:47 | disposition home or self-care (01) ==
LOC: SDC-PAIN 08:59
PROVIDERS: ATTEND Psychiatry & Neurology Pain Medicine
DX: M47.816 Spondylosis without myelopathy or radiculopathy, lumbar region (principal); E11.9 Type 2 diabetes mellitus without complications; J45.909 Unspecified asthma, uncomplicated; M79.7 Fibromyalgia; F41.9 Anxiety disorder, unspecified; I47.1 Supraventricular tachycardia; Z79.899 Other long term (current) drug therapy
CPT/HCPCS: 72020; 77002; 84703

== ENCOUNTER 2019-06-07 11:29 | Emergency (ER) | payer OTHER ==
--- NOTE | 2019-06-07 11:47 | ERPHSYRPT ---
- History of Present Illness Time Seen by Provider: 06/07/19 11:44 Source: patient Exam Limitations: no limitations Physician History: The patient is a 49-year-old female with a past history significant for cigarette smoking presents with a cough. She reportedly started to experience flulike illness this past Wednesday, June 04, 2019 [address] home after visiting family. she reportedly started to experience a nonproductive cough, sore throat, left otalgia, subjective fever, chills in addition to the headache and myalgias. She states the cough has been more persistent and now she is to cough up green to yellow tinged sputum. 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 She has not received her influenza vaccine flu season. She denies chest pain, nausea, vomiting, diarrhea abdominal pain. Timing/Duration: other (06/04/19) Associated Symptoms: cough, chills, fever, headaches, other (Myalgias), No nausea, No vomiting, No abdominal pain Allergies/Adverse Reactions: azithromycin [From Zithromax Z-Pedro] Allergy (Verified 06/07/19 11:49) codeine Allergy (Verified 06/07/19 11:49) shellfish derived Allergy (Verified 06/07/19 11:49) Home Medications: Cyclobenzaprine HCl 10 mg [Cyclobenzaprine 10 MG] 10 mg PO BID PRN [History] Pregabalin [Lyrica 150Mg] 150 mg PO BID 08/16/18 [History] Hydrocodone Bit/Acetaminophen [Hydrocodon-Acetaminophn 10-325] 1 each PO BID PRN 01/22/19 [History] Metoprolol Tartrate 25 mg [Lopressor 25MG Tab] 50 mg PO BID 01/22/19 [ History] Rizatriptan Benzoate [Maxalt] 10 mg PO DAILY PRN 01/22/19 [History] Topiramate 25 mg [Topamax 25 MG] 50 mg PO BID 01/22/19 [History] Hx Tetanus, Diphtheria Vaccination/Date Given: No Hx Influenza Vaccination/Date Given: No Hx Pneumococcal Vaccination/Date Given: No - Review of Systems Constitutional: Fever, Chills Eyes: No Discharge, No Eye Pain Ears, Nose, & Throat: Ear Pain, Nose Congestion, Throat Pain, No Throat Swelling Respiratory: Cough, Dyspnea Cardiac: No Chest Pain, No Edema, No Palpitations, No Syncope, No Orthopnea, No PND Abdominal/Gastrointestinal: No Symptoms, No Nausea, No Vomiting, No Diarrhea Musculoskeletal: No Symptoms Skin: No Symptoms Neurological: Headache Psychological: No Symptoms Hematologic/Lymphatic: No Symptoms - Past Medical History Pertinent Past Medical History: Yes Neurological History: Migraines ENT History: No Pertinent History Cardiac History: Arrhythmia Respiratory History: Asthma, COPD Musculoskeletal History: Fibromyalgia, Fractures, Osteoarthritis GI Medical History: No Pertinent History History: No Pertinent History Female Reproductive Disorders: No Pertinent History Other Medical History: neuropathy. chronic pain. SVT - Past Surgical History Past Surgical History: Yes Neuro Surgical History: No Pertinent History Cardiac: No Pertinent History Respiratory: No Pertinent History Gastrointestinal: Cholecystectomy Musculoskeletal: Orthopedic Surgery Female Surgical History: Section Other Surgical History: neck,arm surg , right pinky, 1 miscarriage, 1 section - Social History Smoking Status: Current every day smoker How long have you smoked: 35 years Exposure to second hand smoke: Yes Drug Use: none Patient Lives Alone: No - Nursing Vital Signs Nursing Vital Signs: Initial Vital Signs Temperature 97.8 F 06/07/19 11:40 Pulse Rate 71 06/07/19 11:40 Respiratory Rate 22 06/07/19 11:40 Blood Pressure 151/86 06/07/19 11:40 O2 Sat by Pulse Oximetry 97 06/07/19 11:40 Pain Scale Pain Intensity 3 - Physical Exam General Appearance: no apparent distress, alert Eye Exam: PERRL/EOMI, No scleral icterus, No photophobia Ears, Nose, Throat Exam: normal ENT inspection, TMs normal, pharynx normal, moist mucous membranes, pharyngeal erythema, No dry mucous membranes, No TM abnormal (R), No TM abnormal (L), No tonsillar exudate Neck Exam: normal inspection, non-tender, supple Respiratory Exam: normal breath sounds, wheezing, No respiratory distress, No accessory muscle use Cardiovascular Exam: regular rate/rhythm, normal heart sounds, normal peripheral pulses, capillary refill <2 sec Gastrointestinal/Abdomen Exam: soft Neurologic Exam: alert, oriented x 3, cooperative Skin Exam: normal color, warm, dry, No rash, No petechiae, No jaundice Lymphatic Exam: No adenopathy SpO2 Interpretation: normal O2 Delivery: Room Air - Course EKG Interpreted by Me: RATE, NORMAL ST-T - Radiology Exams Chest X-ray Interpretation: Interpreted by me, Reviewed by me, Teleradiologist Report , Negative, No Pneumonia, No Pneumothorax, Nml Heart Size, No Infiltrates Ordered Tests: Medication Summary Discontinued Medications Generic Name Dose Route Start Last Admin Trade Name Freq PRN Reason Stop Dose Admin Albuterol/Ipratropium 3 ml 06/07/19 12:33 06/07/19 13:11 Duoneb 0.5-3 Mg/3 Ml Neb IH 06/07/19 12:34 3 ml STAT ONE Administration Albuterol/Ipratropium Confirm 06/07/19 13:02 Duoneb 0.5-3 Mg/3 Ml Neb Administered 06/07/19 13:03 Dose 3 ml IH .STK-MED ONE Prednisone 40 mg 06/07/19 12:34 06/07/19 12:36 Deltasone 20 Mg PO 06/07/19 12:35 40 mg ONCE STA Administration Prednisone Confirm 06/07/19 12:35 Deltasone 20 Mg Administered 06/07/19 12:36 Dose 40 mg .ROUTE .STK-MED ONE - Progress Progress: improved Progress Note: 06/07/19 13:49 reassessed the patient time that she was feeling better. She still had some fine wheezing that was last course after receiving an albuterol neb. She has no hypoxia or increased increased work of breathing. She is appropriate to be discharged home with an albuterol inhaler, prednisone burst in addition to doxycycline for antibiotic therapy for bronchitis and antibiotics are mainly because of her smoking history lung health. 06/09/19 15:02 Counseled pt/family regarding: diagnosis, need for follow-up, rad results, smoking cessation - Departure Departure Disposition: Home Clinical Impression: Bronchitis, Viral syndrome Condition: Stable Critical Care Time: No Referrals: BOUABCAR SINGH MD [Primary Care Provider] - Instructions: Acute Bronchitis, Adult (DC) Plan of Treatment: See Progress Section of note. Prescriptions: Benzonatate [Tessalon Perle] 100 mg PO [id number] PRN #30 capsule PRN Reason: Cough Albuterol 8 gm Mdi Hfa [Ventolin Hfa MDI] 90 mcg IH Q4H PRN #1 [id number] PRN Reason: Shortness Of Breath Doxycycline Hyclate 100 mg [Vibramycin 100 MG] 100 mg PO BID #14 tab Methylprednisolone Packet [Medrol Dosepack] 4 mg PO UD #1 packet Sodium Chloride [Saline Nasal [place]] 30 ml NS BID PRN #1 spray PRN Reason: Sinus Congestion
[2019-06-07] MEDS ORDERED: DUONEB 0.5-3 MG/3 ml Neb IH ONE ×2 (12:33→13:02)
[2019-06-07] MEDS ORDERED: DELTASONE 20 MG PO STA (12:34)
[2019-06-07] MEDS ORDERED: DELTASONE 20 MG ONE (12:35)
[2019-06-07 13:18] VITALS: PULSE 72; O2SAT 95
[2019-06-07 14:02] VITALS: BP 149/84
--- NOTE | 2019-06-07 19:40 | XRAY ---
Indication: Cough and congestion. Comparison: January 22, 2019. PA/lateral chest now clear. Heart and mediastinal structures within normal limits. Bony thorax intact again with lower cervical fusion. No new/acute findings. Comment: Preliminary interpretation was made by [facility]. No critical discrepancy.
== END 2019-06-07 14:02 | disposition home or self-care (01) ==
LOC: ED 11:29
DX: J40 Bronchitis, not specified as acute or chronic (principal); B34.9 Viral infection, unspecified
CPT/HCPCS: 71046; 94150; 94640; 99284; A9270-GY

== ENCOUNTER 2019-07-05 09:17 | Day surgery (SDC) | payer OTHER ==
[2019-07-05] MEDS ORDERED: Marcaine 0.5% SDV 10 ML IJ ONE (09:18)
[2019-07-05] MEDS ORDERED: Depo-Medrol 40 MG/ML IM ONE (09:18)
[2019-07-05] MEDS ORDERED: Ketamine HCl 50 MG/ML ONE (10:14)
[2019-07-05] MEDS ORDERED: DIPRIVAN 200 MG/20 ML IV ONE (10:14)
--- NOTE | 2019-07-05 13:11 | XRAY ---
Indication: Left SI joint injection. Intraoperative fluoroscopy was provided for 7 seconds. 2 digital spot images submitted for interpretation demonstrates posterior needle tip projecting over the inferior left SI joint. Correlate with intraoperative findings/report. Incidental partially visualized iliac stent grafts.
--- NOTE | 2019-07-05 13:13 | XRAY ---
7 seconds fluoroscopy time in surgery for left SI joint injection.
[2019-07-05] MEDS ORDERED: Lactated Ringers 1,000 ML IV ONE (15:39)
== END 2019-07-05 10:40 | disposition home or self-care (01) ==
LOC: SDC-PAIN 09:17
PROVIDERS: ATTEND Psychiatry & Neurology Pain Medicine
DX: M46.1 Sacroiliitis, not elsewhere classified (principal); M53.3 Sacrococcygeal disorders, not elsewhere classified; E11.9 Type 2 diabetes mellitus without complications; I47.1 Supraventricular tachycardia; F41.9 Anxiety disorder, unspecified; M79.7 Fibromyalgia; J45.909 Unspecified asthma, uncomplicated; Z79.899 Other long term (current) drug therapy
CPT/HCPCS: 27096; 72020; 77002; 82962; 84703; J1030; J2704; G0260

== ENCOUNTER 2019-07-26 08:42 | Day surgery (SDC) | payer MEDICAID, OTHER ==
[2019-07-26] MEDS ORDERED: Marcaine 0.5% SDV 10 ML IM ONE (08:43)
[2019-07-26] MEDS ORDERED: Depo-Medrol 40 MG/ML IM ONE (08:43)
[2019-07-26] MEDS ORDERED: Ketamine HCl 50 MG/ML ONE (09:44)
[2019-07-26] MEDS ORDERED: DIPRIVAN 200 MG/20 ML IV ONE (09:44)
--- NOTE | 2019-07-26 10:35 | XRAY ---
Indication: Right SI joint injection. Intraoperative fluoroscopy was provided for 7 seconds. 2 digital spot images submitted for interpretation demonstrates posterior needle tip projecting over the inferior right SI joint. Correlate with intraoperative findings/report.
--- NOTE | 2019-07-26 11:26 | XRAY ---
7 seconds fluoroscopy time in surgery for right SI joint injection.
[2019-07-26] MEDS ORDERED: Lactated Ringers 1,000 ML IV ONE (13:59)
== END 2019-07-26 10:10 | disposition home or self-care (01) ==
LOC: SDC-PAIN 08:42
PROVIDERS: ATTEND Psychiatry & Neurology Pain Medicine
DX: M46.1 Sacroiliitis, not elsewhere classified (principal); E11.9 Type 2 diabetes mellitus without complications; I47.1 Supraventricular tachycardia; J45.909 Unspecified asthma, uncomplicated; F41.9 Anxiety disorder, unspecified; M79.7 Fibromyalgia; Z79.899 Other long term (current) drug therapy
CPT/HCPCS: 64451; 72020; 77002; 82962; 84703; J1030; J2704

== ENCOUNTER 2019-08-23 08:50 | Day surgery (SDC) | payer OTHER ==
[2019-08-23] MEDS ORDERED: Marcaine 0.5% SDV 10 ML IM ONE (08:51)
[2019-08-23] MEDS ORDERED: Ketamine HCl 50 MG/ML ONE (09:58)
[2019-08-23] MEDS ORDERED: DIPRIVAN 200 MG/20 ML IV ONE (09:58)
--- NOTE | 2019-08-23 10:41 | XRAY ---
Indication: Bilateral L4-S1 MBB. Intraoperative fluoroscopy was provided for 14 seconds. Single digital spot image submitted for interpretation demonstrates posterior needle tips projecting over the expected course of the left and right L4-S1 nerve roots. Correlate with intraoperative findings/report. Incidental partially visualized bilateral iliac artery stent grafts.
[2019-08-23] MEDS ORDERED: Lactated Ringers 1,000 ML IV ONE (11:47)
--- NOTE | 2019-08-23 12:07 | XRAY ---
14 seconds fluoroscopy time in surgery for bilateral L4-S1 MBB.
== END 2019-08-23 10:15 | disposition home or self-care (01) ==
LOC: SDC-PAIN 08:50
PROVIDERS: ATTEND Psychiatry & Neurology Pain Medicine
DX: M47.816 Spondylosis without myelopathy or radiculopathy, lumbar region (principal); E11.9 Type 2 diabetes mellitus without complications; J45.909 Unspecified asthma, uncomplicated; M79.7 Fibromyalgia; I47.1 Supraventricular tachycardia; Z79.899 Other long term (current) drug therapy
CPT/HCPCS: 64493; 64494; 72020; 77002; 82962; 84703; J2704

== ENCOUNTER 2020-08-21 08:41 | Day surgery (SDC) | payer MEDICARE ==
[2020-08-21] MEDS ORDERED: BUPIVACAINE 0.5% VIAL IJ ONE (08:42)
[2020-08-21] MEDS ORDERED: Lactated Ringers 1,000 ML IV ONE (08:42)
[2020-08-21] MEDS ORDERED: DIPRIVAN 200 MG/20 ML IV ONE (10:46)
[2020-08-21] MEDS ORDERED: Ketamine HCl 50 MG/ML ONE (10:46)
--- NOTE | 2020-08-21 12:14 | XRAY ---
Indication: Bilateral L4-S1 MBB. Intraoperative fluoroscopy provided for 15 seconds. Single digital spot image submitted for interpretation demonstrate posterior needle tips projecting over the expected left and right L4-S1 nerve roots. Correlate with intraoperative findings/report. Incidental partially visualized bilateral iliac artery stent grafts.
--- NOTE | 2020-08-21 12:29 | XRAY ---
15 seconds fluoroscopy time in surgery for bilateral L4-S1 MBB.
== END 2020-08-21 11:15 | disposition home or self-care (01) ==
LOC: SDC-PAIN 08:41
PROVIDERS: ATTEND Psychiatry & Neurology Pain Medicine
DX: M47.816 Spondylosis without myelopathy or radiculopathy, lumbar region (principal); E11.9 Type 2 diabetes mellitus without complications; J45.909 Unspecified asthma, uncomplicated; M79.7 Fibromyalgia; Z79.899 Other long term (current) drug therapy
CPT/HCPCS: 64493; 64494; 72020; 77002; 82947; 84703; J2704

== ENCOUNTER 2020-10-09 07:45 | Day surgery (SDC) | payer MEDICARE ==
[2020-10-09] MEDS ORDERED: Depo-Medrol 40 MG/ML IM ONE (07:46)
[2020-10-09] MEDS ORDERED: Xylocaine 1% Vial 30 ML PF IJ ONE (07:46)
[2020-10-09] MEDS ORDERED: BUPIVACAINE 0.5% VIAL IJ ONE (07:46)
[2020-10-09] MEDS ORDERED: DIPRIVAN 200 MG/20 ML IV ONE (09:14)
--- NOTE | 2020-10-09 10:39 | XRAY ---
Indication: Right L4-S1 RFA. Intraoperative fluoroscopy provided for 16 seconds. 3 digital spot image submitted for interpretation demonstrate posterior needle tips projecting over the expected right L4-S1 nerve roots. Correlate with intraoperative findings/report. Incidental incompletely visualized aortobiiliac stent grafts.
--- NOTE | 2020-10-09 10:51 | XRAY ---
16 seconds fluoroscopy time in surgery for right L4-S1 RFA.
[2020-10-09] MEDS ORDERED: Lactated Ringers 1,000 ML IV ONE (15:58)
== END 2020-10-09 09:46 | disposition home or self-care (01) ==
LOC: SDC-PAIN 07:45
PROVIDERS: ATTEND Psychiatry & Neurology Pain Medicine
DX: M47.816 Spondylosis without myelopathy or radiculopathy, lumbar region (principal); I47.1 Supraventricular tachycardia; J45.909 Unspecified asthma, uncomplicated; E11.9 Type 2 diabetes mellitus without complications; F41.9 Anxiety disorder, unspecified; M79.7 Fibromyalgia; Z79.899 Other long term (current) drug therapy
CPT/HCPCS: 72100; 77002; 82947; 84703; J1030; J2001; J2704

== ENCOUNTER 2020-10-23 08:14 | Day surgery (SDC) | payer MEDICARE ==
[2020-10-23] MEDS ORDERED: Xylocaine 1% Vial 30 ML PF IJ ONE (08:15)
[2020-10-23] MEDS ORDERED: Depo-Medrol 40 MG/ML IM ONE (08:15)
[2020-10-23] MEDS ORDERED: BUPIVACAINE 0.5% VIAL IJ ONE (08:15)
[2020-10-23] MEDS ORDERED: DIPRIVAN 200 MG/20 ML IV ONE (09:20)
--- NOTE | 2020-10-23 10:58 | XRAY ---
Indication: Left L4-S1 RFA. Intraoperative fluoroscopy provided for 28 seconds. 3 digital spot images submitted for interpretation demonstrates posterior needle tips projecting over the expected left L4-S1 nerve roots. Correlate with intraoperative findings/report. Incidental incompletely visualized aortobiiliac stent grafts.
--- NOTE | 2020-10-23 11:01 | XRAY ---
28 seconds fluoroscopy time in surgery for left L4-S1 RFA.
[2020-10-23] MEDS ORDERED: Lactated Ringers 1,000 ML IV ONE (15:26)
== END 2020-10-23 09:51 | disposition home or self-care (01) ==
LOC: SDC-PAIN 08:14
PROVIDERS: ATTEND Psychiatry & Neurology Pain Medicine
DX: M47.817 Spondylosis without myelopathy or radiculopathy, lumbosacral region (principal); E11.9 Type 2 diabetes mellitus without complications; J45.909 Unspecified asthma, uncomplicated; M79.7 Fibromyalgia; F41.9 Anxiety disorder, unspecified; Z79.899 Other long term (current) drug therapy
CPT/HCPCS: 64635; 64636; 72100; 77002; 82947; 84703; J1030; J2001; J2704

== ENCOUNTER 2020-12-15 20:15 | Emergency (ER) | payer MEDICARE ==
[2020-12-15] MEDS ORDERED: Sodium Chloride 0.9% 1000 ML 1,000 ML IV STA (20:53)
[2020-12-15] MEDS ORDERED: Reglan 10 MG/2 ML IV ONE (20:53)
[2020-12-15] MEDS ORDERED: TORAdol 30 mg Injection IV ONE (20:53)
[2020-12-15] MEDS ORDERED: TYLENOL 325 MG PO ONE (20:53)
[2020-12-15] MEDS ORDERED: BENADRYL 50 MG/ML IV ONE (20:53)
[2020-12-15] MEDS ORDERED: Sodium Chloride 0.9% 1000 ML 1,000 ML ONE (21:15)
[2020-12-15] MEDS ORDERED: TORAdol 30 mg Injection ONE (21:15)
[2020-12-15] MEDS ORDERED: Reglan 10 MG/2 ML ONE (21:15)
[2020-12-15] MEDS ORDERED: BENADRYL 50 MG/ML ONE (21:15)
[2020-12-15] MEDS ORDERED: TYLENOL 325 MG ONE (21:15)
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
[2020-12-16 00:15] VITALS: BP 126/86; PULSE 78; O2SAT 98
== END 2020-12-15 23:15 | disposition home or self-care (01) ==
LOC: ED 20:15
DX: G43.909 Migraine, unspecified, not intractable, without status migrainosus (principal); Z79.899 Other long term (current) drug therapy; E11.9 Type 2 diabetes mellitus without complications; I10 Essential (primary) hypertension
CPT/HCPCS: 36000; 96374; 96375; 99284; J1200; J1885; A9270-GY

== ENCOUNTER 2021-02-05 08:27 | Day surgery (SDC) | payer MEDICARE ==
[2021-02-05] MEDS ORDERED: BUPIVACAINE 0.5% VIAL IJ ONE (08:28)
[2021-02-05] MEDS ORDERED: Depo-Medrol 40 MG/ML IM ONE (08:28)
[2021-02-05] MEDS ORDERED: Lactated Ringers 1,000 ML IV ONE (10:01)
[2021-02-05] MEDS ORDERED: DIPRIVAN 200 MG/20 ML IV ONE (10:13)
--- NOTE | 2021-02-05 10:54 | XRAY ---
Indication: Right knee injection. Intraoperative fluoroscopy provided for 6 seconds. Single digital spot image submitted for interpretation demonstrates needle tip projecting right femur intracondylar notch. Small amount of contrast injected for needle tip placement. Correlate with intraoperative findings/report.
--- NOTE | 2021-02-05 10:56 | XRAY ---
Indication: Left knee injection. Intraoperative fluoroscopy provided for 9 seconds. Single digital spot image submitted for interpretation demonstrates needle tip projecting left femur intracondylar notch. Small amount of contrast injected for needle tip placement. Correlate with intraoperative findings/report.
--- NOTE | 2021-02-05 13:06 | XRAY ---
6 seconds of fluoroscopy was used in surgery for a right intra-articular knee injection.
--- NOTE | 2021-02-05 13:16 | XRAY ---
9 seconds of fluoroscopy was used in surgery for a left intra-articular knee injection.
== END 2021-02-05 10:51 | disposition home or self-care (01) ==
LOC: SDC-PAIN 08:27
PROVIDERS: ATTEND Psychiatry & Neurology Pain Medicine
DX: M17.0 Bilateral primary osteoarthritis of knee (principal); E11.9 Type 2 diabetes mellitus without complications; Z79.899 Other long term (current) drug therapy
CPT/HCPCS: 20610; 73560; 77002; 82947; 84703; J1030; J2704; Q9966

== ENCOUNTER 2021-04-09 08:31 | Day surgery (SDC) | payer MEDICARE ==
[2021-04-09] MEDS ORDERED: Depo-Medrol 40 MG/ML IM ONE (08:32)
[2021-04-09] MEDS ORDERED: BUPIVACAINE 0.5% VIAL IJ ONE (08:32)
[2021-04-09] MEDS ORDERED: DIPRIVAN 200 MG/20 ML IV ONE (09:41)
[2021-04-09] MEDS ORDERED: Lactated Ringers 1,000 ML IV ONE (12:26)
--- NOTE | 2021-04-09 12:31 | XRAY ---
Indication: Bilateral SI joint injection. Intraoperative fluoroscopy provided for 21 seconds. 4 digital spot images submitted for interpretation demonstrates posterior needle tip projecting over the inferior left and right SI joint. Correlate with intraoperative findings/report. Incidental partially visualized aortoiliac stent grafts.
--- NOTE | 2021-04-09 13:00 | XRAY ---
21 seconds of fluoroscopy was used in surgery for bilateral SI joints injections.
== END 2021-04-09 10:10 | disposition home or self-care (01) ==
LOC: SDC-PAIN 08:31
PROVIDERS: ATTEND Psychiatry & Neurology Pain Medicine
DX: M46.1 Sacroiliitis, not elsewhere classified (principal); E11.9 Type 2 diabetes mellitus without complications; Z79.899 Other long term (current) drug therapy
CPT/HCPCS: 27096; 72202; 77002; 82947; 84703; G0260; J1030; J2704

== ENCOUNTER 2021-06-08 01:30 | Emergency (ER) | payer MEDICARE ==
[2021-06-08] MEDS ORDERED: Reglan 10 MG/2 ML IM ONE (02:16)
[2021-06-08] MEDS ORDERED: BENADRYL 50 MG/ML IM ONE (02:16)
[2021-06-08] MEDS ORDERED: TORAdol 30 mg Injection IM ONE (02:16)
[2021-06-08] MEDS ORDERED: TYLENOL 325 MG PO ONE (02:16)
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
[2021-06-08] MEDS ORDERED: BENADRYL 50 MG/ML ONE (02:27)
[2021-06-08] MEDS ORDERED: Reglan 10 MG/2 ML ONE (02:28)
[2021-06-08] MEDS ORDERED: TORAdol 30 mg Injection ONE (02:28)
[2021-06-08] MEDS ORDERED: TYLENOL EXTRA STRENGTH 500 MG PO STA (02:30)
[2021-06-08] MEDS ORDERED: TYLENOL EXTRA STRENGTH 500 MG ONE (02:31)
[2021-06-08 03:36] VITALS: BP 146/83; PULSE 72; O2SAT 98
== END 2021-06-08 03:24 | disposition home or self-care (01) ==
LOC: ED 01:30
DX: G43.909 Migraine, unspecified, not intractable, without status migrainosus (principal); R09.81 Nasal congestion; I10 Essential (primary) hypertension; E11.9 Type 2 diabetes mellitus without complications; Z79.84 Long term (current) use of oral hypoglycemic drugs; Z79.891 Long term (current) use of opiate analgesic; Z79.899 Other long term (current) drug therapy; Z72.0 Tobacco use
CPT/HCPCS: 96372; 99284; J1200; J1885; A9270-GY

== ENCOUNTER 2021-07-16 02:46 | Emergency (ER) | payer MEDICARE ==
[2021-07-16] MEDS ORDERED: BABY ASPIRIN 81 MG CHEW PO ONE (03:11)
[2021-07-16 03:13] LABS: Absolute Neutrophil Ct (ANC) 3.37 (1.4-6.9); Basophil (Absolute #) 0.02 (0-0.4); Eosinophil % 1.7 % (0.00-5.0); Hematocrit 51.6 % (35-47); Hemoglobin 16.3 gm/dl (12.0-16.0); Lymphocyte (Absolute #) 2.04 (1.0-4.6); Mean Corpuscular Hemoglobin 29.7 pg (26-32); Mean Corpuscular Hgb Concent. 31.6 g/dl (32-36); Mean Platelet Volume 12.2 fl (7.5-11.0); Monocyte (Absolute #) 0.47 (0.0-1.3); Monocytes % 7.8 % (0.0-12.0); Neutrophil % 56.2 % (36.0-66.0); Platelet Count 119 K/mm3 (150-450); Red Blood Count 5.49 M/mm3 (4.1-5.4); Red Cell Distribution Width 16.1 % (11.5-14.0)
[2021-07-16 03:22] LABS: INR 0.97 (0.8-3.0); PROTIME 11.4 SECONDS (9.4-12.5)
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
[2021-07-16 03:25] LABS: PTT 31.9 SECONDS (25.1-36.5)
[2021-07-16 03:26] LABS: ALBUMIN 4.2 g/dL (3.5-5.0); ALKALINE PHOSPHATASE 104 U/L (38-126); BLOOD UREA NITROGEN 10 mg/dL (7-17); CHLORIDE 106 mmol/L (98-107); Calcium 9.5 mg/dL (8.4-10.2); Carbon Dioxide 25 mmol/L (22-30); Creatinine 1 0.86 mg/dL (0.52-1.04); EST GLOMERULAR FILTRATION RATE > 60.0 ML/MIN; Glucose 115 mg/dL (74-106); SGOT/AST 30 U/L (14-36); SGPT/ALT 28 U/L (0-35); SODIUM 140 mmol/L (137-145); Total Protein 7.8 g/dL (6.3-8.2)
[2021-07-16] MEDS ORDERED: BABY ASPIRIN 81 MG CHEW ONE (03:29)
[2021-07-16 03:41] LABS: COVID AG -BINAX NOW RAPID TEST NEGATIVE (NEGATIVE)
[2021-07-16] MEDS ORDERED: MORPHINE SULFATE 4 MG INJ IV ONE ×2 (03:51→05:11)
[2021-07-16] MEDS ORDERED: Zofran 4 MG/2 ML VIAL IV ONE (03:52)
[2021-07-16] MEDS ORDERED: Zofran 4 MG/2 ML VIAL ONE (03:53)
[2021-07-16] MEDS ORDERED: MORPHINE SULFATE 4 MG INJ ONE ×2 (03:53→05:12)
[2021-07-16] MEDS ORDERED: Nitrostat 0.4 MG (ED) SL ONE (04:27)
[2021-07-16] MEDS ORDERED: Nitrostat 0.4 MG Tablet SL ONE (04:39)
[2021-07-16 05:31] VITALS: O2SAT 97
[2021-07-16 06:30] VITALS: BP 122/80; PULSE 74
--- NOTE | 2021-07-16 08:54 | XRAY ---
Indication: Short of breath, palpitations, dizziness, and tachycardia. Elevated d-dimer. Multiple contiguous images obtained through the chest using 100 cc Isovue 370 contrast and PE protocol. Comparison: February 19, 2018. There is adequate opacification of the pulmonary arteries to includes the lobar and segmental branches. No pulmonary embolus. Heart is not enlarged. Aorta is normal in course and caliber. No pathologic mediastinal/hilar lymphadenopathy. Lungs demonstrates minimal bilateral dependent atelectasis. No suspicious pulmonary mass, infiltrate, or effusion. Bony thorax intact again with minimal degenerative changes throughout the spine and partially visualized inferior cervical fusion hardware. Limited upper abdomen again demonstrates fatty liver, 18.5 cm splenomegaly, and cholecystectomy. Impression: 1. Continue negative pulmonary embolus. No new/acute cardiopulmonary abnormalities. 2. Again incidental fatty liver, splenomegaly, and chronic bony findings. Comment: Preliminary interpretation made by C. No critical discrepancy.
--- NOTE | 2021-07-16 08:56 | XRAY ---
Indication: Chest pain. Comparison: June 07, 2019. Portable chest remains clear. Heart not enlarged for AP portable technique. Bony thorax intact again with cervical fusion hardware. No new/acute findings.
== END 2021-07-16 06:00 | disposition short-term general hospital (02) ==
LOC: ED 02:46
DX: I21.4 Non-ST elevation (NSTEMI) myocardial infarction (principal); I10 Essential (primary) hypertension; Z72.0 Tobacco use; R11.0 Nausea; R06.00 Dyspnea, unspecified; E11.9 Type 2 diabetes mellitus without complications; Z79.84 Long term (current) use of oral hypoglycemic drugs; Z79.891 Long term (current) use of opiate analgesic; Z79.899 Other long term (current) drug therapy
CPT/HCPCS: 36000; 36415; 71045; 71260; 80053; 84484; 85025; 85379; 85610; 85730; 93005; 96374; 96375; 96376; 99000; 99285; J2270; J2405; A9270-GY

== ENCOUNTER 2021-10-01 07:48 | Day surgery (SDC) | payer MEDICARE ==
[2021-10-01] MEDS ORDERED: BUPIVACAINE 0.5% VIAL IJ ONE (07:49)
[2021-10-01] MEDS ORDERED: Depo-Medrol 40 MG/ML IM ONE (07:49)
[2021-10-01] MEDS ORDERED: Lactated Ringers 1,000 ML IV ONE (08:23)
[2021-10-01] MEDS ORDERED: DIPRIVAN 200 MG/20 ML IV ONE (09:11)
--- NOTE | 2021-10-01 10:13 | XRAY ---
Indication: Bilateral hip injection. Intraoperative fluoroscopy provided for 18 seconds. 2 digital spot images submitted for interpretation demonstrates needle tips lateral to the left and right femur necks. Small amount of contrast injected for needle tip placement. Correlate with intraoperative findings/report.
--- NOTE | 2021-10-01 11:36 | XRAY ---
25 seconds fluoroscopy time in surgery for bilateral intra-articular hip injections.
== END 2021-10-01 09:21 | disposition home or self-care (01) ==
LOC: SDC-PAIN 07:48
PROVIDERS: ATTEND Psychiatry & Neurology Pain Medicine
DX: M16.0 Bilateral primary osteoarthritis of hip (principal); E11.9 Type 2 diabetes mellitus without complications; Z79.899 Other long term (current) drug therapy
CPT/HCPCS: 20610; 73521; 77002; 82947; 84703; J1030; J2704; Q9966

== ENCOUNTER 2021-11-05 07:49 | Day surgery (SDC) | payer MEDICARE ==
[2021-11-05] MEDS ORDERED: Sodium Chloride 0.9(Preservative Free) 10 ML IJ ONE (07:50)
[2021-11-05] MEDS ORDERED: Depo-Medrol 40 MG/ML IM ONE (07:50)
[2021-11-05] MEDS ORDERED: DIPRIVAN 200 MG/20 ML IV ONE (09:05)
[2021-11-05] MEDS ORDERED: Lactated Ringers 1,000 ML IV ONE (09:39)
--- NOTE | 2021-11-05 10:28 | XRAY ---
Indication: Caudally is side. Intraoperative fluoroscopy provided for 15 seconds. 2 digital spot image submitted for interpretation demonstrates caudal needle tip projecting mid sacrum. Small amount contrast injected for needle tip placement. Correlate with intraoperative findings/report. Incidental incompletely visualized bilateral aortoiliac stent grafts.
--- NOTE | 2021-11-05 10:32 | XRAY ---
15 seconds fluoroscopy time in surgery for caudal JUDSON.
== END 2021-11-05 09:35 | disposition home or self-care (01) ==
LOC: SDC-PAIN 07:49
PROVIDERS: ATTEND Psychiatry & Neurology Pain Medicine
DX: M54.16 Radiculopathy, lumbar region (principal); E11.9 Type 2 diabetes mellitus without complications; Z79.899 Other long term (current) drug therapy
CPT/HCPCS: 62323; 72220; 77002; 82947; 84703; J1030; J2704; Q9966

== ENCOUNTER 2022-02-18 08:00 | Day surgery (SDC) | payer MEDICARE ==
[2022-02-18] MEDS ORDERED: Sodium Chloride 0.9(Preservative Free) 10 ML IJ ONE (08:01)
[2022-02-18] MEDS ORDERED: Depo-Medrol 40 MG/ML IM ONE (08:01)
[2022-02-18] MEDS ORDERED: DIPRIVAN 200 MG/20 ML IV ONE (09:28)
[2022-02-18] MEDS ORDERED: Lactated Ringers 1,000 ML IV ONE (14:24)
--- NOTE | 2022-02-18 17:58 | XRAY ---
Indication: Caudal JUDSON. Intraoperative fluoroscopy provided for 41 seconds. 2 digital spot images submitted for interpretation demonstrates caudal needle tip projecting mid sacrum. Small amount of contrast injected for needle tip placement. Correlate with intraoperative findings/report. Incidental partially visualized bilateral iliac stent grafts.
--- NOTE | 2022-02-18 18:32 | XRAY ---
41 seconds of fluoroscopy was used in surgery for a caudal JUDSON.
== END 2022-02-18 10:00 | disposition home or self-care (01) ==
LOC: SDC-PAIN 08:00
PROVIDERS: ATTEND Psychiatry & Neurology Pain Medicine
DX: M54.16 Radiculopathy, lumbar region (principal); E11.9 Type 2 diabetes mellitus without complications; Z79.899 Other long term (current) drug therapy
CPT/HCPCS: 62323; 72220; 77003; 81025; 82947; J1030; J2704; Q9966

== ENCOUNTER 2022-06-24 07:50 | Day surgery (SDC) | payer MEDICARE ==
[2022-06-24] MEDS ORDERED: BUPIVACAINE 0.5% VIAL IJ ONE (07:51)
[2022-06-24] MEDS ORDERED: Depo-Medrol 40 MG/ML IM ONE (07:51)
[2022-06-24 08:11] LABS: POCT GLUCOSE 108 mg/dL (74 to 106)
[2022-06-24 08:16] LABS: HCG,QUALITATIVE URINE NEGATIVE (Negative)
[2022-06-24] MEDS ORDERED: DIPRIVAN 200 MG/20 ML IV ONE (09:15)
--- NOTE | 2022-06-24 09:55 | XRAY ---
Indication: Right SI joint and right hip injection. Intraoperative fluoroscopy provided for 20 seconds. 3 digital spot images obtained prone submitted for interpretation demonstrates posterior needle tip projecting over the right SI joint. Second needle tip lateral to the right femur neck with small amount of contrast injected for needle tip placement. Correlate with intraoperative findings/report.
--- NOTE | 2022-06-24 10:18 | XRAY ---
20 seconds of fluoroscopy was used in surgery for a right sacroiliac joint and intra-articular hip injection.
[2022-06-24] MEDS ORDERED: Lactated Ringers 1,000 ML IV ONE (13:10)
== END 2022-06-24 09:40 | disposition home or self-care (01) ==
LOC: SDC-PAIN 07:50
PROVIDERS: ATTEND Psychiatry & Neurology Pain Medicine
DX: M46.1 Sacroiliitis, not elsewhere classified (principal); M16.11 Unilateral primary osteoarthritis, right hip; E11.9 Type 2 diabetes mellitus without complications; Z79.899 Other long term (current) drug therapy
CPT/HCPCS: 20610; 27096; 73501; 77002; 81025; 82947; J1030; J2704; Q9966; G0260

== ENCOUNTER 2022-09-23 09:37 | Day surgery (SDC) | payer MEDICARE ==
[2022-09-23] MEDS ORDERED: Depo-Medrol 40 MG/ML IM ONE (09:38)
[2022-09-23] MEDS ORDERED: BUPIVACAINE 0.5% VIAL IJ ONE (09:38)
[2022-09-23] MEDS ORDERED: LIDOCAINE HCL 1% 50 MG/5 ML VL PF IJ ONE (09:38)
[2022-09-23 10:02] LABS: HCG URINE TEST NEGATIVE (NEGATIVE)
[2022-09-23 10:57] LABS: ALKALINE PHOSPHATASE 122 U/L (38-126); ANION GAP 13.7 MEQ/L (5-15); BLOOD UREA NITROGEN 12 mg/dL (7-17); CHLORIDE 111 mmol/L (98-107); CK-Creatinine Phosphokinase 36 U/L (30-135); Carbon Dioxide 24 mmol/L (22-30); Cholesterol 136 mg/dL (50-200); EST GLOMERULAR FILTRATION RATE > 60.0 ML/MIN; Glucose 110 mg/dL (74-106); HDL CHOLESTEROL 30 mg/dL (40-60); LDL, DIRECT 67 mg/dL (30-100); Potassium 4.1 mmol/L (3.5-5.1); Risk Ratio 4.6; SGOT/AST 32 U/L (14-36); SGPT/ALT 30 U/L (0-35); SODIUM 144 mmol/L (137-145); TRIGLYCERIDE 228 mg/dL (30-150); Total Protein 7.6 g/dL (6.3-8.2)
[2022-09-23] MEDS ORDERED: DIPRIVAN 200 MG/20 ML IV ONE (11:00)
--- NOTE | 2022-09-23 11:49 | XRAY ---
Indication: Right L4-S1 RFA. Intraoperative fluoroscopy provided 23 seconds. 3 digital spot image submitted for interpretation demonstrates posterior needle tips projecting over the expected right L4-S1 nerve roots. Correlate with intraoperative findings/report. Incidental incompletely visualized aortobiiliac stent grafts.
[2022-09-23] MEDS ORDERED: Lactated Ringers 1,000 ML IV ONE (12:45)
--- NOTE | 2022-09-23 15:12 | XRAY ---
23 seconds of fluoroscopy was used in surgery for a right L4-S1 RFA.
== END 2022-09-23 11:45 | disposition home or self-care (01) ==
LOC: SDC-PAIN 09:37
PROVIDERS: ATTEND Psychiatry & Neurology Pain Medicine
DX: M47.816 Spondylosis without myelopathy or radiculopathy, lumbar region (principal); E11.9 Type 2 diabetes mellitus without complications; Z79.899 Other long term (current) drug therapy
CPT/HCPCS: 36415; 64635; 64636; 72100; 77002; 80053; 80061; 81025; 82550; 82947; 83721; J1030; J2001; J2704

== ENCOUNTER 2022-12-06 23:43 | Emergency (ER) | payer MEDICARE ==
[2022-12-07] MEDS ORDERED: DUONEB 0.5-3 MG/3 ml Neb IH ONE ×2 (00:46→00:51)
[2022-12-07 00:59] LABS: Absolute Neutrophil Ct (ANC) 2.67 x10^3/uL (1.4-6.9); BASOPHIL % 0.4 % (0.0-0.4); Basophil (Absolute #) 0.02 x10^3/uL (0-0.4); Eosinophil (Absolute #) 0.09 x10^3/uL (0-0.5); Hematocrit 43.3 % (35-47); Hemoglobin 13.8 g/dL (12.0-16.0); IMMATURE GRAN # 0.01 x10^3u/L (0.00-0.03); IMMATURE GRAN % 0.2 % (0.00-0.4); Lymphocyte (Absolute #) 1.46 x10^3/uL (1.0-4.6); Mean Cell Volume 91.4 fL (78-100); Mean Corpuscular Hemoglobin 29.1 pg (26-32); Mean Corpuscular Hgb Concent. 31.9 g/dL (32-36); Mean Platelet Volume 12.8 fL (7.5-11.0); Monocyte (Absolute #) 0.31 x10^3/uL (0.0-1.3); Monocytes % 6.8 % (0.0-12.0); Neutrophil % 58.6 % (36.0-66.0); Platelet Count 106 x10^3/uL (150-450); Red Blood Count 4.74 x10^6/uL (4.1-5.4); Red Cell Distribution Width 15.7 % (11.5-14.0); White Blood Count 4.6 x10^3/uL (4.0-10.5)
[2022-12-07 01:09] LABS: ALBUMIN 3.7 g/dL (3.5-5.0); ALKALINE PHOSPHATASE 110 U/L (38-126); ANION GAP 11.9 MEQ/L (5-15); BLOOD UREA NITROGEN 9 mg/dL (7-17); CHLORIDE 107 mmol/L (98-107); Carbon Dioxide 26 mmol/L (22-30); Creatinine 1 0.72 mg/dL (0.52-1.04); EST GLOMERULAR FILTRATION RATE > 60.0 ML/MIN; Glucose 98 mg/dL (74-106); Potassium 3.9 mmol/L (3.5-5.1); SGOT/AST 29 U/L (14-36); SGPT/ALT 31 U/L (0-35); SODIUM 141 mmol/L (137-145); Total Protein 7.3 g/dL (6.3-8.2)
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
[2022-12-07 03:00] LABS: Appearance Clear (Clear); Bacteria None Seen /HPF (None Seen); Bilirubin Negative (Negative); Blood Negative (Negative); Epithelial Cells Rare /HPF (None Seen); Glucose, Urine >=1000 mg/dL (Negative); Hyaline Casts NONE SEEN /LPF (0-2); Ketones Negative (Negative); Leukocyte Esterase Negative (Negative); Nitrite Negative (Negative); Protein,Urine Dip Negative (Negative); RBC 0-2 /HPF (0-5); WBC 0-2 /HPF (0-5)
[2022-12-07 03:08] LABS: ADD URINE CULTURE? NO (NO)
[2022-12-07] MEDS ORDERED: BENADRYL 50 MG/ML IV ONE (03:29)
[2022-12-07] MEDS ORDERED: BENADRYL 50 MG/ML ONE (03:55)
[2022-12-07 06:17] VITALS: O2SAT 99
[2022-12-07] MEDS ORDERED: solu-MEDROL 125 MG, Sterile H2O 10 ml 2 ML IV ONE ×4 (06:17→06:18)
[2022-12-07] MEDS ORDERED: Sterile H2O 10 ml IJ ONE (06:20)
[2022-12-07] MEDS ORDERED: solu-MEDROL ONE (06:21)
[2022-12-07 06:57] VITALS: PULSE 56
[2022-12-07 07:05] VITALS: BP 159/79
--- NOTE | 2022-12-07 09:05 | XRAY ---
CLINICAL HISTORY:sob, PE? COMPARISON:None. TECHNIQUE:Contiguous axial CT images of the chest were acquired with the administration of intravenous contrast. Coronal and sagittal reconstructions were also obtained. 100 cc of Isovue 370 was administered for post-contrast images. FINDINGS: The pulmonary arteries on both sides and their branches are seen patent wih no evidence of embolism or thrombosis. The scanned pulmonary parenchyma shows no definite consolidative lesions. No discrete nodule or mass in either lung. No free or encysted pleural effusion. Heart size is normal, and there is no pericardial effusion. No pathologically enlarged mediastinal, hilar, or axillary lymph node is identified. There is no definite mass lesion in the chest wall. The scanned upper abdomen is unremarkable. Degenerative changes in the visualized spine. IMPRESSION: No significant pulmonary abnormality. The rest of the enhanced CT study for the chest is unremarkable. Electronically Signed by: Oren Dockery MD. (12/07/2022 04:49:36 SMASHER)
--- NOTE | 2022-12-07 09:36 | XRAY ---
Indication: Short of breath. Comparison: July 16, 2021 Portable chest again demonstrates normal heart and lungs. Bony thorax intact again with cervical fusion hardware. No new/acute findings.
== END 2022-12-07 07:12 | disposition home or self-care (01) ==
LOC: ED 23:43
DX: J45.909 Unspecified asthma, uncomplicated (principal); R06.02 Shortness of breath; R81 Glycosuria; R53.1 Weakness; R42 Dizziness and giddiness; I10 Essential (primary) hypertension; E11.9 Type 2 diabetes mellitus without complications; Z79.84 Long term (current) use of oral hypoglycemic drugs; Z79.02 Long term (current) use of antithrombotics/antiplatelets; Z79.891 Long term (current) use of opiate analgesic; Z79.52 Long term (current) use of systemic steroids; Z79.899 Other long term (current) drug therapy; Z72.0 Tobacco use
CPT/HCPCS: 36000; 36415; 71045; 71260; 80053; 81001; 82947; 83880; 84484; 85025; 85379; 93005; 93041; 94640; 94760; 96374; 96375; 99284; J1200; J2930; A9270-GY

== ENCOUNTER 2023-02-10 08:37 | Day surgery (SDC) | payer MEDICARE ==
[2023-02-10] MEDS ORDERED: Depo-Medrol 40 MG/ML IM ONE (08:38)
[2023-02-10] MEDS ORDERED: BUPIVACAINE 0.5% VIAL IJ ONE (08:38)
[2023-02-10] MEDS ORDERED: LIDOCAINE HCL 1% 50 MG/5 ML VL PF IJ ONE (08:38)
[2023-02-10 08:55] LABS: HCG URINE TEST NEGATIVE (NEGATIVE)
[2023-02-10] MEDS ORDERED: Versed 2 MG/2 ML Injection ONE ×2 (09:23→09:45)
[2023-02-10] MEDS ORDERED: SUBLIMAZE 100 MCG/2 ML ONE (09:35)
[2023-02-10] MEDS ORDERED: MORPHINE SULFATE 2 MG INJ ONE (10:06)
--- NOTE | 2023-02-10 10:51 | XRAY ---
Indication: Left L4-S1 RFA. Intraoperative fluoroscopy provided for 29 seconds. 3 digital spot image submitted for interpretation demonstrates posterior needle tips projecting over the expected left L4-S1 nerve roots. Correlate with intraoperative findings/report. Incidental incompletely visualized aortobiiliac stents.
--- NOTE | 2023-02-10 10:53 | XRAY ---
29 seconds of fluoroscopy was used in surgery for a left L4-S1 RFA.
[2023-02-10] MEDS ORDERED: Lactated Ringers 1,000 ML IV ONE (14:08)
== END 2023-02-10 10:25 | disposition home or self-care (01) ==
LOC: SDC-PAIN 08:37
PROVIDERS: ATTEND Psychiatry & Neurology Pain Medicine
DX: M47.816 Spondylosis without myelopathy or radiculopathy, lumbar region (principal); E11.9 Type 2 diabetes mellitus without complications; Z79.899 Other long term (current) drug therapy
CPT/HCPCS: 64635; 64636; 72100; 77002; 81025; 82947; J1030; J2001; J2250; J2270; J3010

== ENCOUNTER 2023-03-13 10:42 | Emergency (ER) | payer MEDICARE ==
[2023-03-13 11:15] VITALS: PULSE 58; RESP 17; TEMP 97.6
[2023-03-13 11:16] VITALS: O2SAT 97
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
[2023-03-13] MEDS ORDERED: ACYCLOVIR PO STA (12:10)
[2023-03-13] MEDS ORDERED: ACYCLOVIR ONE (12:26)
[2023-03-13] MEDS ORDERED: ACYCLOVIR PO ONE (12:28)
[2023-03-13 12:46] VITALS: BP 117/82
--- NOTE | 2023-03-13 19:28 | XRAY ---
Indication: Pain. No known injury. Comparison: None 3 view right shoulder demonstrates osteopenia, mild AC degenerative changes, small inferior glenoid process spurring, lower cervical fusion hardware, and prominent right C7 transverse process. No other bony, articular, or soft tissue abnormalities.
== END 2023-03-13 12:51 | disposition home or self-care (01) ==
LOC: ED 10:42
DX: M79.2 Neuralgia and neuritis, unspecified (principal); M25.511 Pain in right shoulder; I10 Essential (primary) hypertension; E11.9 Type 2 diabetes mellitus without complications; Z79.84 Long term (current) use of oral hypoglycemic drugs; Z79.02 Long term (current) use of antithrombotics/antiplatelets; Z79.891 Long term (current) use of opiate analgesic; Z79.899 Other long term (current) drug therapy; Z72.0 Tobacco use
CPT/HCPCS: 73030; 99283; A9270-GY

== ENCOUNTER 2023-03-24 08:45 | Day surgery (SDC) | payer MEDICARE ==
[2023-03-24] MEDS ORDERED: LIDOCAINE HCL 1% 50 MG/5 ML VL PF IJ ONE (08:46)
[2023-03-24] MEDS ORDERED: Depo-Medrol 40 MG/ML IM ONE (08:46)
[2023-03-24] MEDS ORDERED: BUPIVACAINE 0.5% VIAL IJ ONE (08:46)
[2023-03-24 09:07] LABS: HCG URINE TEST NEGATIVE (NEGATIVE)
[2023-03-24] MEDS ORDERED: DIPRIVAN 200 MG/20 ML IV ONE (10:07)
--- NOTE | 2023-03-24 13:54 | XRAY ---
Indication: Left knee injection. Intraoperative fluoroscopy provided for 1 seconds. Single digital spot image submitted for interpretation demonstrates needle tip projecting over left femur intracondylar notch. Small amount of contrast injected for needle tip placement. Correlate with intraoperative findings/report.
--- NOTE | 2023-03-24 13:54 | XRAY ---
5 seconds of fluoroscopy was used in surgery for a right intra-articular knee injection.
--- NOTE | 2023-03-24 13:54 | XRAY ---
One second of fluoroscopy was used in surgery for a left intra-articular knee injection.
--- NOTE | 2023-03-24 13:54 | XRAY ---
Indication: Right knee injection. Intraoperative fluoroscopy provided for 5 seconds. Single digital spot image submitted for interpretation demonstrates needle tip projecting over right femur intracondylar notch. Small amount of contrast injected for needle tip placement. Correlate with intraoperative findings/report.
[2023-03-24] MEDS ORDERED: Lactated Ringers 1,000 ML IV ONE (14:59)
== END 2023-03-24 10:36 | disposition home or self-care (01) ==
LOC: SDC-PAIN 08:45
PROVIDERS: ATTEND Psychiatry & Neurology Pain Medicine
DX: M17.0 Bilateral primary osteoarthritis of knee (principal); E11.9 Type 2 diabetes mellitus without complications; Z79.899 Other long term (current) drug therapy
CPT/HCPCS: 20550; 20610; 73560; 76942; 77002; 81025; 82947; J1030; J2001; J2704; Q9966

== ENCOUNTER 2023-10-21 07:50 | Day surgery (SDC) | payer MEDICARE ==
--- NOTE | 2023-10-20 10:57 | HP ---
DATE OF SURGERY: 10/21/2023 HISTORY OF PRESENT ILLNESS: The patient is a 53-year-old female presents with family history of polyps. The patient has had some complaints of constipation the past two or three weeks. She is taking pain medicine methadone for opioid history. PAST MEDICAL HISTORY: Hypertension, heart disease, asthma, chronic obstructive pulmonary disease, anxiety, depression, diabetes type II, hyperlipidemia and migraines. PAST SURGICAL HISTORY: Cholecystectomy. section. Neck surgery. Arm surgery. Cholecystectomy. Iliac artery stent. ALLERGIES: CODEINE. KEFLEX. AZITHROMYCIN. IODINE. SHELLFISH. MEDICATIONS: Albuterol, aspirin, atorvastatin, Plavix, stool softener, duloxetine, Lasix, hydroxyzine, Ipratropium, Albuterol, Lyrica, methadone, Singulair, Nystatin, rizatriptan, topiramate, Xigduo XR. FAMILY HISTORY: Diabetes, hypertension, cholesterol, bladder cancer. SOCIAL HISTORY: Negative. REVIEW OF SYSTEMS: CONSTITUTIONAL: Denies fever or chills. CHEST: Denies shortness of breath. CVS: Denies chest pain. ABDOMEN: Denies abdominal pain. PHYSICAL EXAMINATION: GENERAL: No acute distress. CHEST: Nonlabored. No shortness of breath. CVS: Regular rate and rhythm. ABDOMEN: Soft. IMPRESSION: Screening. PLAN: Colonoscopy with Dr. Owen Morin. As dictated by Althea Clements NP.
[2023-10-21] MEDS ORDERED: Lactated Ringers 1,000 ML IV ONE (08:05)
[2023-10-21] MEDS: Lactated Ringers 1,000 ML IV SCH (08:09)
[2023-10-21] MEDS ORDERED: DIPRIVAN 200 MG/20 ML IV ONE ×2 (09:24→10:06)
[2023-10-21] MEDS ORDERED: Versed 2 MG/2 ML Injection ONE (09:24)
[2023-10-21] MEDS ORDERED: GlucaGen 1 MG ONE (10:05)
[2023-10-21] MEDS ORDERED: Dulcolax 10 MG SUPP PR ONE (10:45)
[2023-10-21 12:20] VITALS: RESP 16
--- NOTE | 2023-10-21 12:51 | OP ---
SURGERY DATE/TIME: 10/21/2023 0951 PREOPERATIVE DIAGNOSES: 1) Constipation. 2) Screening. POSTOPERATIVE DIAGNOSIS: Sigmoid rectum junction 1 cm polyp. PROCEDURES: 1) Colonoscopy complete to cecum. 2) Hot polypectomy x1 rectosigmoid 1 cm. SURGEON: Owen Morin M.D. DIRECT MARKETING COORDINATOR: Joby Petty, Medical Student III. ANESTHESIA: MAC. COMPLICATIONS: None. CONDITION: Stable. INDICATION: The patient is 53 years old with no previous scope. The patient is a bit constipated. She has not had screening to date. She presents basically for screening exam. DESCRIPTION OF PROCEDURE: Taken to endoscopy. Left lateral decubitus position. She is morbidly obese. Anal digital examination satisfactory. She does have moderate internal and external hemorrhoids. Scope introduced. Rectosigmoid a little angulated. It was navigated. Scope advanced up to the cecum. Base of the cecum, ileocecal valve was normal. Ascending, hepatic, transverse, splenic, descending, sigmoid. The sigmoid rectum junction 1 cm polyp taken with hot biopsy forceps to extinction. Anus satisfactory. The patient tolerated the procedure satisfactorily. Follow up in five years.
[2023-10-21 13:04] LABS: ALBUMIN 3.8 g/dL (3.5-5.0); ANION GAP 9.3 MEQ/L (5-15); BILIRUBIN,TOTAL 0.5 mg/dL (0.2-1.3); Calcium 8.9 mg/dL (8.4-10.2); Creatinine 1 0.78 mg/dL (0.52-1.04); EST GLOMERULAR FILTRATION RATE 90.2 ML/MIN; Potassium 3.5 mmol/L (3.5-5.1)
[2023-10-21 13:23] VITALS: PULSE 83
--- NOTE | 2023-10-21 13:25 | XRAY ---
Indication: Lower abdominal pain. Status post colonoscopy. Rule out perforated bowel. Multiple contiguous axial images obtained through the abdomen and pelvis without contrast. Comparison: August 16, 2018 Lung bases are clear. Heart not enlarged. Noncontrasted stomach and bowel loops appear nonobstructed. Interval appendectomy. No free fluid/air. 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 Again diffuse fatty liver, 17.5 cm splenomegaly, and cholecystectomy. Remaining pancreas, adrenal glands, kidneys, ureters, bladder, and uterus are unremarkable for noncontrast exam. New aortobiiliac stents. Osseous structures intact again with minimal degenerative changes throughout the spine. Impression: 1. 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 2. New aortobiiliac stents. Lack of IV contrast precludes evaluation for stent patency. 3. Again chronic findings including fatty liver, splenomegaly, and degenerative spondylosis. 4. Remaining CT abdomen/pelvis without contrast exam is negative.
[2023-10-21 13:37] VITALS: BP 132/84; TEMP 97.4; O2SAT 98
== END 2023-10-21 13:57 | disposition home or self-care (01) ==
LOC: SDC 07:50
PROVIDERS: ATTEND Surgery
DX: Z12.11 Encounter for screening for malignant neoplasm of colon (principal); Z09 Encounter for follow-up examination after completed treatment for conditions other than malignant neoplasm; Z86.010 Personal history of colon polyps; D12.7 Benign neoplasm of rectosigmoid junction; K59.00 Constipation, unspecified; I10 Essential (primary) hypertension; E11.9 Type 2 diabetes mellitus without complications; K64.4 Residual hemorrhoidal skin tags; K64.8 Other hemorrhoids
CPT/HCPCS: 36415; 74176; 80053; 82947; 93005; J1610; J2250; J2704

== ENCOUNTER 2023-12-08 09:10 | Day surgery (SDC) | payer MEDICARE ==
[2023-12-08] MEDS ORDERED: BUPIVACAINE 0.5% VIAL IJ ONE (09:11)
[2023-12-08] MEDS ORDERED: Depo-Medrol 40 MG/ML IM ONE (09:11)
[2023-12-08] MEDS ORDERED: LIDOCAINE HCL 1% 50 MG/5 ML VL PF IJ ONE (09:11)
[2023-12-08 09:48] LABS: HCG URINE TEST NEGATIVE (NEGATIVE)
[2023-12-08] MEDS ORDERED: DIPRIVAN 200 MG/20 ML IV ONE (10:55)
[2023-12-08] MEDS ORDERED: Lactated Ringers 1,000 ML IV ONE (12:54)
--- NOTE | 2023-12-08 13:23 | XRAY ---
Indication: Right L4-S1 RFA. Intraoperative fluoroscopy provided for 20 seconds. 3 digital spot image submitted for interpretation demonstrate posterior needle tips projecting over the expected right L4-S1 nerve roots. Correlate with intraoperative findings/report. Incidental incompletely visualized aortobiiliac stents
--- NOTE | 2023-12-08 14:13 | XRAY ---
20 seconds of fluoroscopy was used in surgery for a right L4-S1 RFA.
== END 2023-12-08 11:28 | disposition home or self-care (01) ==
LOC: SDC-PAIN 09:10
PROVIDERS: ATTEND Psychiatry & Neurology Pain Medicine
DX: M47.817 Spondylosis without myelopathy or radiculopathy, lumbosacral region (principal); E11.9 Type 2 diabetes mellitus without complications
CPT/HCPCS: 64635; 64636; 72100; 77002; 81025; 82947; J2001; J2704

== ENCOUNTER 2024-03-29 09:16 | Day surgery (SDC) | payer MEDICARE ==
[2024-03-29] MEDS ORDERED: Depo-Medrol 40 MG/ML IM ONE (09:17)
[2024-03-29] MEDS ORDERED: BUPIVACAINE 0.5% VIAL IJ ONE (09:17)
[2024-03-29] MEDS ORDERED: LIDOCAINE HCL 1% AMPUL 5 ML IJ ONE (09:17)
[2024-03-29] MEDS ORDERED: DIPRIVAN 200 MG/20 ML IV ONE (10:48)
--- NOTE | 2024-03-29 12:20 | XRAY ---
Indication: Left L4-S1 RFA. Intraoperative fluoroscopy provided for 17 seconds. 4 digital spot image submitted for interpretation demonstrates posterior needle tips projecting over the expected left L4-S1 nerve roots. Correlate with intraoperative findings/report. Incidental incompletely visualized aortobiiliac stents.
--- NOTE | 2024-03-29 12:36 | XRAY ---
17 seconds of fluoroscopy was used in surgery for a left L4-S1 RFA.
== END 2024-03-29 11:20 | disposition home or self-care (01) ==
LOC: SDC-PAIN 09:16
PROVIDERS: ATTEND Psychiatry & Neurology Pain Medicine
DX: M47.817 Spondylosis without myelopathy or radiculopathy, lumbosacral region (principal); E11.9 Type 2 diabetes mellitus without complications
CPT/HCPCS: 64635; 64636; 72100; 77002; 82947; J2704

== ENCOUNTER 2024-06-30 23:10 | Emergency (ER) | payer MEDICARE ==
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
[2024-06-30 23:33] VITALS: O2SAT 97
[2024-06-30] MEDS ORDERED: DUONEB 0.5-3 MG/3 ml Neb IH ONE (23:36)
[2024-06-30 23:38] LABS: Absolute Neutrophil Ct (ANC) 4.22 x10^3/uL (1.56-6.13); BASOPHIL % 0.6 % (0.1-1.2); Basophil (Absolute #) 0.04 x10^3/uL (0.01-0.08); Eosinophil % 1.9 % (0.7-5.8); Eosinophil (Absolute #) 0.12 x10^3/uL (0.04-0.36); Hematocrit 47.6 % (34.1-44.9); IMMATURE GRAN # 0.02 x10^3u/L (0.001-0.031); IMMATURE GRAN % 0.3 % (0.001-0.429); Lymphocyte (Absolute #) 1.67 x10^3/uL (1.18-3.74); Lymphocytes % 25.9 % (19.3-51.7); Mean Cell Volume 89.6 fL (79.4-94.8); Mean Corpuscular Hemoglobin 28.2 pg (25.6-32.2); Mean Corpuscular Hgb Concent. 31.5 g/dL (32.2-35.5); Mean Platelet Volume 12.3 fL (9.4-12.3); Monocyte (Absolute #) 0.37 x10^3/uL (0.24-0.86); Monocytes % 5.7 % (4.7-12.5); Neutrophil % 65.6 % (34.0-71.1); Platelet Count 133 x10^3/uL (182-369); Red Blood Count 5.31 x10^6/uL (3.93-5.22); Red Cell Distribution Width 17.4 % (11.7-14.4); White Blood Count 6.4 x10^3/uL (3.98-10.04)
[2024-06-30] MEDS: DUONEB 0.5-3 MG/3 ml Neb IH ONE (23:41)
[2024-06-30 23:47] VITALS: TEMP 97.7
[2024-06-30] MEDS ORDERED: Zofran 4 MG/2 ML VIAL ONE (23:48)
[2024-06-30] MEDS ORDERED: MORPHINE SULFATE 4 MG INJ ONE (23:48)
[2024-06-30] MEDS ORDERED: BABY ASPIRIN 81 MG CHEW ONE (23:48)
[2024-06-30] MEDS: BABY ASPIRIN 81 MG CHEW PO ONE (23:51)
[2024-06-30] MEDS: Zofran 4 MG/2 ML VIAL IV ONE (23:53)
[2024-06-30] MEDS: MORPHINE SULFATE 4 MG INJ IV ONE (23:56)
[2024-06-30 23:59] LABS: ANION GAP 12.1 MEQ/L (5-15); BILIRUBIN,TOTAL 0.4 mg/dL (0.2-1.3); Calcium 9.1 mg/dL (8.4-10.2); Creatinine 1 0.78 mg/dL (0.52-1.04); EST GLOMERULAR FILTRATION RATE 89.6 ML/MIN; Potassium 4.1 mmol/L (3.5-5.1)
[2024-07-01 00:11] LABS: NT PRO BNPII < 20.0 pg/mL (<300); TROPONIN < 0.012 ng/mL (0.000-0.033)
[2024-07-01 02:20] VITALS: BP 107/65; PULSE 86; RESP 16
--- NOTE | 2024-07-01 08:21 | XRAY ---
Indication: Chest pain. Comparison: March 29, 2024 Portable chest again hyperinflated with new right infrahilar infiltrate/atelectasis. Remaining heart and lungs unremarkable. Bony thorax intact again with osteopenia and cervical fusion hardware. Comment: Right lung finding not reported by interpreting ER clinician. Telephone report given to Dr. Marin at 0815 hrs on Jul 01, 2024.
== END 2024-07-01 01:41 | disposition left against medical advice (07) ==
LOC: ED 23:10
DX: R07.9 Chest pain, unspecified (principal); R91.8 Other nonspecific abnormal finding of lung field; E11.42 Type 2 diabetes mellitus with diabetic polyneuropathy; Z79.84 Long term (current) use of oral hypoglycemic drugs; Z79.899 Other long term (current) drug therapy; Z79.02 Long term (current) use of antithrombotics/antiplatelets; Z72.0 Tobacco use
CPT/HCPCS: 36415; 71045; 80053; 83880; 84484; 85025; 93005; 93041; 94640; 96374; 96375; 99284; 99285; J2270; J2405; A9270-GY

== ENCOUNTER 2025-03-28 08:20 | Day surgery (SDC) | payer MEDICARE ==
[2025-03-28] MEDS ORDERED: BUPIVACAINE 0.5% VIAL IJ ONE (08:21)
[2025-03-28] MEDS ORDERED: methylPREDNISolone acetate IM ONE (08:21)
[2025-03-28] MEDS ORDERED: LIDOCAINE HCL 1% 50 MG/5 ML VL IJ ONE (08:21)
[2025-03-28] MEDS ORDERED: propofoL IV ONE (09:58)
--- NOTE | 2025-03-28 11:56 | XRAY ---
Indication: Right L4-S1 RFA. Intraoperative fluoroscopy provided for 16 seconds. 4 digital spot images submitted for interpretation demonstrates posterior needle tips projecting over expected right L4-S1 nerve roots. Correlate with intraoperative findings/report. Incidental incompletely visualized aorto bi-iliac stents.
--- NOTE | 2025-03-28 12:32 | XRAY ---
16 seconds of fluoroscopy was used in surgery for a right L4-S1 RFA.
[2025-03-28] MEDS ORDERED: Lactated Ringers 1,000 ML IV ONE (14:01)
== END 2025-03-28 10:40 | disposition home or self-care (01) ==
LOC: SDC-PAIN 08:20
PROVIDERS: ATTEND Psychiatry & Neurology Pain Medicine
DX: M47.817 Spondylosis without myelopathy or radiculopathy, lumbosacral region (principal); E11.9 Type 2 diabetes mellitus without complications

== ENCOUNTER 2025-04-11 08:11 | Day surgery (SDC) | payer MEDICARE ==
[2025-04-11] MEDS ORDERED: BUPIVACAINE 0.5% VIAL IJ ONE (08:12)
[2025-04-11] MEDS ORDERED: methylPREDNISolone acetate IM ONE (08:12)
[2025-04-11] MEDS ORDERED: LIDOCAINE HCL 1% 50 MG/5 ML VL IJ ONE (08:12)
[2025-04-11] MEDS ORDERED: propofoL IV ONE (09:00)
[2025-04-11] MEDS ORDERED: Versed 2 MG/2 ML Injection ONE (09:00)
[2025-04-11] MEDS ORDERED: Lactated Ringers 1,000 ML IV ONE (11:04)
--- NOTE | 2025-04-11 11:09 | XRAY ---
Indication: Left L4-S1 RFA. Intraoperative fluoroscopy provided for 21 seconds. 4 digital spot images submitted for interpretation demonstrates posterior needle tips projecting over expected left L4-S1 nerve roots. Correlate with intraoperative findings/report. Incidental incompletely visualized aorto bi-iliac stents.
--- NOTE | 2025-04-11 13:09 | XRAY ---
21 seconds of fluoroscopy was used in surgery for a left L4-S1 RFA.
== END 2025-04-11 09:40 | disposition home or self-care (01) ==
LOC: SDC-PAIN 08:11
PROVIDERS: ATTEND Psychiatry & Neurology Pain Medicine
DX: M47.817 Spondylosis without myelopathy or radiculopathy, lumbosacral region (principal); E11.9 Type 2 diabetes mellitus without complications